=== PATIENT | female | born 2000 | race Caucasian/White ===

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

== ENCOUNTER 2020-08-22 09:35 | Emergency (ER) | payer OTHER ==
[~2020-08-22] VITALS: Ht 162.6 cm; Wt 58.0 kg
[~2020-08-22 09:35] MED LIST changes: +IBUP800T19 PO
[2020-08-22 09:54] VITALS: BP 100/73
[2020-08-22] MEDS ORDERED: IV NORMAL SALINE 1,000ML 1,000 ML IV ONE (10:00)
[2020-08-22] MEDS ORDERED: ONDANSETRON PF 4 MG/2 ML VIAL. IVP ONE (10:00)
--- NOTE | 2020-08-22 10:09 | PHYS DOC ---
Past History Past Medical History: No Pertinent History Past Surgical History: No Surgical History Alcohol Use: None General Adult EDM: Chief Complaint: NAUSEA/VOMITING/DIARRHEA HPI: HPI: 20-year-old female that is 15 weeks presents with nausea and vomiting. She started vomiting around 3 AM. She is unable to keep down any solids or liquids. She has had several episodes and she is concerned about dehydration. She has not had diarrhea. She has been constipated. She has not had a bowel movement in 4 days. This is unusual for her as she usually does every day. She has only tried a children's suppository so far. Patient denies any vaginal bleeding or abdominal pain. She denies fever or chills. She has no other comp laints at this time. Review of Systems: Review of Systems: Constitutional: Denies fever or chills Eyes: Denies change in visual acuity HENT: Denies nasal congestion or sore throat Respiratory: Denies cough or shortness of breath Cardiovascular: Denies chest pain or edema GI: nausea, vomiting. Denies abdominal pain, bloody stools or diarrhea : Denies dysuria Musculoskeletal: Denies back pain or joint pain Integument: Denies rash Neurologic: Denies headache, focal weakness or sensory changes Endocrine: Denies polyuria or polydipsia Lymphatic: Denies swollen glands Psychiatric: Denies depression or anxiety Current Medications: Current Meds: Current Medications Medications (Trade) Dose Ordered Sig/Sav Start Time Stop Time Status Last Admin Dose Admin Ondansetron HCl (Zofran) 4 mg 1X ONCE 08/22/20 10:00 08/22/20 10:01 DC Sodium Chloride 1,000 ml @ 1,000 mls/hr 1X ONCE 08/22/20 10:00 08/22/20 10:59 Allergies: Allergies: Allergies Coded Allergies Type Severity Reaction Last Updated Verified No Known Drug Allergies 08/22/20 No Physical Exam: PE: Constitutional: Well developed, well nourished, no acute distress, non-toxic appearance. [] HENT: Normocephalic, atraumatic, bilateral external ears normal, oropharynx moist, no oral exudates, nose normal. [] Eyes: PERRLA, EOMI, conjunctiva normal, no discharge. [] Neck: Normal range of motion, no tenderness, supple, no stridor. [] Cardiovascular:Heart rate regular rhythm, no murmur [] Lungs & Thorax: Bilateral breath sounds clear to auscultation [] Abdomen: Bowel sounds normal, soft, gravid uterus, no tenderness, no masses, no pulsatile masses. [] Skin: Warm, dry, no erythema, no rash. [] Back: No tenderness, no CVA tenderness. [] Extremities: No tenderness, no cyanosis, no clubbing, ROM intact, no edema. [] Neurologic: Alert and oriented X 3, normal motor function, normal sensory function, no focal deficits noted. [] Psychologic: Affect normal, judgement normal, mood normal. [] Current Patient Data: Vital Signs: Vital Signs Date Time Temp Pulse Resp B/P (MAP) Pulse Ox O2 Delivery O2 Flow Rate FiO2 08/22/20 09:54 98.1 73 18 100/73 (82) 100 EKG: EKG: [] Radiology/Procedures: Radiology/Procedures: [] Heart Score: Risk Factors: Risk Factors: DM, Current or recent (<one month) smoker, HTN, HLP, family history of CAD, obesity. Risk Scores: Score 0 - 3: 2.5% MACE over next 6 weeks - Discharge Home Score 4 - 6: 20.3% MACE over next 6 weeks - Admit for Clinical Observation Score 7 - 10: 72.7% MACE over next 6 weeks - Early Invasive Strategies Course & Med Decision Making: Course & Med Decision Making Pertinent Labs and Imaging studies reviewed. (See chart for details) The patient's urinalysis is significant for bacterial vaginosis with clue cells and UTI. I will treat her with Keflex for 5 days and Flagyl for 7 days. I will also give her Zofran ODT for home. She is stable for discharge at this time. [] Dragon Disclaimer: Dragon Disclaimer: This electronic medical record was generated, in whole or in part, using a voice recognition dictation system. Departure Departure: Impression: Primary Impression: Qualified Codes: Z3A.15 - 15 weeks gestation of Additional Impressions: Bacterial vaginosis in UTI (urinary tract infection) in in second trimester Disposition: 01 DC HOME SELF CARE/HOMELESS Condition: STABLE Referrals: PCP,NO (PCP) Patient Instructions: Bacterial Vaginosis, [id number], - Urinary Tract Infection Scripts Metronidazole (FLAGYL) 500 Mg Tablet 1 TAB PO BID for bacterial vaginosis, #14 TAB Prov: GÓMEZ PINON DO 08/22/20 Cephalexin (KEFLEX) 500 Mg Capsule 1 CAP PO TID for UTI for 5 Days, #15 CAP 0 Refills Prov: GÓMEZ PINON DO 08/22/20 Ondansetron (ONDANSETRON ODT) 4 Mg Tab.rapdis 1 TAB PO PRN Q6-8HRS PRN for VOMITING, #16 TAB Prov: GÓMEZ PINON DO 08/22/20 GÓMEZ PINON DO Aug 22, 2020 10:09
[2020-08-22 10:21] LABS: BASO % 0 % (0-3); EOS # 0.1 x10^3/uL (0.0-0.7); EOS % 1 % (0-3); HEMOGLOBIN 12.5 g/dL (12.0-15.5); LYMPH # 1.4 x10^3/uL (1.0-4.8); LYMPH % 16 % (24-48); MEAN CORPUSCULAR HEMOGLOBIN 34 pg (25-35); MEAN CORPUSCULAR HGB CONC 34 g/dL (31-37); MEAN CORPUSCULAR VOLUME 100 fL (79-100); MONO # 0.5 x10^3/uL (0.0-1.1); MONO % 6 % (0-9); NEUT # 6.6 x10^3uL (1.8-7.7); NEUT % 78 % (31-73); PLATELET COUNT 254 x10^3/uL (140-400); RED BLOOD COUNT 3.72 x10^6/uL (3.50-5.40); RED CELL DISTRIBUTION WIDTH 12.4 % (11.5-14.5); WHITE BLOOD COUNT 8.6 x10^3/uL (4.0-11.0)
[2020-08-22 10:29] LABS: BILIRUBIN,URINE NEG (NEG); CLARITY,URINE TURBID; COLOR,URINE YELLOW; GLUCOSE,URINE NEG (NEG)
[2020-08-22 10:30] LABS: NITRITE,URINE POS (NEG); UROBILINOGEN,URINE 0.2 mg/dL (0.2 mg/dL)
[2020-08-22 10:31] LABS: BACTERIA,URINE MANY /HPF (0-FEW); SQUAMOUS EPITHELIAL CELL,UR MANY /LPF; WBC,URINE >40 /HPF (0-4)
[2020-08-22 10:32] LABS: CALCIUM 9.3 mg/dL (8.5-10.1); CREATININE 0.6 mg/dL (0.6-1.0); GFR 127.5; POTASSIUM 3.7 mmol/L (3.5-5.1)
[2020-08-22 10:37] LABS: ALBUMIN 3.7 g/dL (3.4-5.0); TOTAL BILIRUBIN 0.1 mg/dL (0.2-1.0); TOTAL PROTEIN 7.3 g/dL (6.4-8.2)
[2020-08-22] MEDS ORDERED: METR500T PO (10:54)
[2020-08-22] MEDS ORDERED: CEPH-264 PO (10:54)
[2020-08-22] MEDS ORDERED: ONDA4TAB12 PO (10:54)
== END 2020-08-22 11:12 | disposition home or self-care (01) ==
LOC: MERGE 09:35 → ER 09:35
DX: O23.42 Unspecified infection of urinary tract in pregnancy, second trimester (principal); O23.592 Infection of other part of genital tract in pregnancy, second trimester; K59.00 Constipation, unspecified; Z3A.15 15 weeks gestation of pregnancy
CPT/HCPCS: 36415; 80053; 81001; 85025; 87086; 96361; 96374; 99283; J2405; J7030

== ENCOUNTER 2020-09-03 07:31 | Emergency (ER) | payer OTHER ==
[~2020-09-03] VITALS: Ht 162.6 cm; Wt 59.0 kg
[~2020-09-03 07:31] MED LIST changes: +CEPH-264 PO; +METR500T PO; +ONDA4TAB12 PO
[2020-09-03 07:41] VITALS: BP 120/85
[2020-09-03] MEDS ORDERED: IV NORMAL SALINE 1,000ML 1,000 ML IV ONE (08:00)
[2020-09-03] MEDS ORDERED: ONDANSETRON PF 4 MG/2 ML VIAL. IVP ONE ×2 (08:00→08:30)
--- NOTE | 2020-09-03 08:06 | PHYS DOC ---
Past History Past Medical History: No Pertinent History Past Surgical History: No Surgical History Smoking: Non-smoker Alcohol Use: None Drug Use: Marijuana General Adult EDM: Chief Complaint: VOMITING IN HPI: HPI: Patient is a 20-year-old female coming in for nausea and vomiting since yesterday. Is out of her Zofran and is currently between OBGYN. Nonbloody nonbilious, denies any diarrhea or constipation. No focal abdominal pain. No changes or decrease in urination. Denies any vaginal bleeding or discharge. History of hyperemesis. Review of Systems: Review of Systems: Constitutional: Denies fever or chills Eyes: Denies change in visual acuity HENT: Denies nasal congestion or sore throat Respiratory: Denies cough or shortness of breath Cardiovascular: Denies chest pain or edema GI: Denies abdominal pain, has nonbloody nonbilious vomiting, denies diarrhea : Denies dysuria Musculoskeletal: Denies back pain or joint pain Integument: Denies rash Neurologic: Denies headache, focal weakness or sensory changes Endocrine: Denies polyuria or polydipsia Lymphatic: Denies swollen glands Psychiatric: Denies depression or anxiety Current Medications: Current Meds: Current Medications Medications (Trade) Dose Ordered Sig/Sav Start Time Stop Time Status Last Admin Dose Admin Sodium Chloride 1,000 ml @ 1,000 mls/hr 1X ONCE 09/03/20 08:00 09/03/20 08:59 UNV Allergies: Allergies: Allergies Coded Allergies Type Severity Reaction Last Updated Verified I S O L A T I O N *CONTACT* Allergy Unknown 08/26/20 Yes NKMA Allergy Unknown 08/26/20 Yes Physical Exam: PE: Constitutional: Well developed, well nourished, no acute distress, non-toxic appearance. [] HENT: Normocephalic, atraumatic, bilateral external ears normal, oropharynx moist, no oral exudates, nose normal. [] Eyes: PERRLA, EOMI, conjunctiva normal, no discharge. [] Neck: Normal range of motion, no tenderness, supple, no stridor. [] Cardiovascular:Heart rate regular rhythm, no murmur [] Lungs & Thorax: Bilateral breath sounds clear to auscultation [] Abdomen: Bowel sounds normal, soft, no tenderness, no masses, no pulsatile masses. [] Skin: Warm, dry, no erythema, no rash. [] Back: No tenderness, no CVA tenderness. [] Extremities: No tenderness, no cyanosis, no clubbing, ROM intact, no edema. [] Neurologic: Alert and oriented X 3, normal motor function, normal sensory function, no focal deficits noted. [] Psychologic: Affect normal, judgement normal, mood normal. [] Current Patient Data: Vital Signs: Vital Signs Date Time Temp Pulse Resp B/P (MAP) Pulse Ox O2 Delivery O2 Flow Rate FiO2 09/03/20 07:41 97.9 92 16 120/85 (97) 98 Room Air EKG: EKG: [] Radiology/Procedures: Radiology/Procedures: [] Heart Score: Risk Factors: Risk Factors: DM, Current or recent (<one month) smoker, HTN, HLP, family history of CAD, obesity. Risk Scores: Score 0 - 3: 2.5% MACE over next 6 weeks - Discharge Home Score 4 - 6: 20.3% MACE over next 6 weeks - Admit for Clinical Observation Score 7 - 10: 72.7% MACE over next 6 weeks - Early Invasive Strategies Course & Med Decision Making: Course & Med Decision Making Abdomen unremarkable tolerating p.o., [] Dragon Disclaimer: Dragon Disclaimer: This electronic medical record was generated, in whole or in part, using a voice recognition dictation system. Departure Departure: Impression: Primary Impression: Vomiting during Disposition: 01 DC HOME SELF CARE/HOMELESS Condition: STABLE Referrals: PCP,NO (PCP) Patient Instructions: Nausea and Vomiting Scripts Ondansetron Hcl (ZOFRAN) 4 Mg Tablet 1 TAB PO PRN Q6HRS PRN for NAUSEA, #12 TAB Prov: RIO CHARLTON MD 09/03/20 Ondansetron (ONDANSETRON ODT) 4 Mg Tab.rapdis 1 TAB PO PRN Q6-8HRS PRN for VOMITING, #16 TAB Prov: RIO CHARLTON MD 09/03/20 RIO CHARLTON MD Sep 03, 2020 08:06
[2020-09-03 08:30] LABS: BASO % 0 % (0-3); EOS # 0.1 x10^3/uL (0.0-0.7); EOS % 1 % (0-3); HEMOGLOBIN 12.6 g/dL (12.0-15.5); LYMPH # 1.9 x10^3/uL (1.0-4.8); LYMPH % 17 % (24-48); MEAN CORPUSCULAR HEMOGLOBIN 34 pg (25-35); MEAN CORPUSCULAR HGB CONC 34 g/dL (31-37); MEAN CORPUSCULAR VOLUME 100 fL (79-100); MONO # 0.5 x10^3/uL (0.0-1.1); MONO % 5 % (0-9); NEUT # 8.5 x10^3uL (1.8-7.7); NEUT % 77 % (31-73); PLATELET COUNT 304 x10^3/uL (140-400); RED CELL DISTRIBUTION WIDTH 12.3 % (11.5-14.5)
[2020-09-03] MEDS ORDERED: TRIA15OI TP (08:32)
[2020-09-03 08:39] LABS: CREATININE 0.6 mg/dL (0.6-1.0); GFR 127.5; POTASSIUM 3.3 mmol/L (3.5-5.1)
[2020-09-03 08:45] LABS: ALBUMIN 3.5 g/dL (3.4-5.0); ALBUMIN/GLOBULIN RATIO 0.9 (1.0-1.7); TOTAL BILIRUBIN 0.1 mg/dL (0.2-1.0); TOTAL PROTEIN 7.2 g/dL (6.4-8.2)
[2020-09-03 10:29] LABS: BILIRUBIN,URINE NEG (NEG); CLARITY,URINE CLOUDY; COLOR,URINE AMBER; GLUCOSE,URINE NEG (NEG); NITRITE,URINE NEG (NEG); UROBILINOGEN,URINE 0.2 mg/dL (0.2 mg/dL)
[2020-09-03 10:30] LABS: AMORPHOUS SEDIMENT,UR PRESENT /HPF; BACTERIA,URINE FEW /HPF (0-FEW); HYALINE CASTS, URINE FEW /HPF; SQUAMOUS EPITHELIAL CELL,UR MANY /LPF
[2020-09-03] MEDS ORDERED: ONDA4TAB12 PO (10:39)
[2020-09-03] MEDS ORDERED: ONDA4TAB7 PO (10:39)
== END 2020-09-03 10:43 | disposition home or self-care (01) ==
LOC: ER 07:31
DX: O21.9 Vomiting of pregnancy, unspecified (principal); Z3A.17 17 weeks gestation of pregnancy; Z88.8 Allergy status to other drugs, medicaments and biological substances
CPT/HCPCS: 36415; 80053; 81001; 83690; 85025; 87086; 96361; 96374; 99284; J2405; J7030

== ENCOUNTER 2020-10-11 09:11 | Emergency (ER) | payer OTHER ==
[~2020-10-11] VITALS: Ht 165.1 cm; Wt 59.0 kg
[~2020-10-11 09:11] MED LIST changes: +ONDA4TAB7 PO; +TRIA15OI TP
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
[2020-10-11 10:09] LABS: BASO % 0 % (0-3); EOS % 0 % (0-3); HEMATOCRIT 31.9 % (36.0-47.0); HEMOGLOBIN 10.5 g/dL (12.0-15.5); LYMPH # 1.5 x10^3/uL (1.0-4.8); LYMPH % 15 % (24-48); MEAN CORPUSCULAR HEMOGLOBIN 33 pg (25-35); MEAN CORPUSCULAR HGB CONC 33 g/dL (31-37); MEAN CORPUSCULAR VOLUME 100 fL (79-100); MONO # 0.6 x10^3/uL (0.0-1.1); MONO % 6 % (0-9); NEUT # 8.2 x10^3uL (1.8-7.7); NEUT % 79 % (31-73); PLATELET COUNT 370 x10^3/uL (140-400); RED BLOOD COUNT 3.19 x10^6/uL (3.50-5.40); RED CELL DISTRIBUTION WIDTH 12.3 % (11.5-14.5); WHITE BLOOD COUNT 10.4 x10^3/uL (4.0-11.0)
[2020-10-11 10:14] LABS: CALCIUM 8.6 mg/dL (8.5-10.1); CREATININE 0.7 mg/dL (0.6-1.0); GFR 106.7; POTASSIUM 3.3 mmol/L (3.5-5.1)
[2020-10-11 10:20] LABS: ALBUMIN 2.8 g/dL (3.4-5.0); ALBUMIN/GLOBULIN RATIO 0.7 (1.0-1.7); TOTAL BILIRUBIN 0.2 mg/dL (0.2-1.0); TOTAL PROTEIN 6.8 g/dL (6.4-8.2)
[2020-10-11 10:46] LABS: BILIRUBIN,URINE NEG (NEG); CLARITY,URINE CLOUDY; COLOR,URINE YELLOW; GLUCOSE,URINE NEG (NEG); NITRITE,URINE POS (NEG)
[2020-10-11 10:47] LABS: BACTERIA,URINE MANY /HPF (0-FEW); SQUAMOUS EPITHELIAL CELL,UR FEW /LPF; WBC,URINE >40 /HPF (0-4)
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
[2020-10-11 12:21] LABS: BASO % 0 % (0-3); EOS % 0 % (0-3); HEMOGLOBIN 10.2 g/dL (12.0-15.5); LYMPH # 1.8 x10^3/uL (1.0-4.8); LYMPH % 14 % (24-48); MEAN CORPUSCULAR HEMOGLOBIN 33 pg (25-35); MEAN CORPUSCULAR HGB CONC 33 g/dL (31-37); MEAN CORPUSCULAR VOLUME 99 fL (79-100); MONO # 0.7 x10^3/uL (0.0-1.1); MONO % 5 % (0-9); NEUT # 10.6 x10^3uL (1.8-7.7); NEUT % 81 % (31-73); PLATELET COUNT 355 x10^3/uL (140-400); RED BLOOD COUNT 3.14 x10^6/uL (3.50-5.40); RED CELL DISTRIBUTION WIDTH 12.3 % (11.5-14.5); WHITE BLOOD COUNT 13.1 x10^3/uL (4.0-11.0)
[2020-10-11 13:19] LABS: FETAL BLEED VOL < 15 mL; KLEIHAUER RESULT 0.0018 RATIO
[2020-10-11 13:46] VITALS: BP 114/65
[2020-10-11] MEDS ORDERED: NITR100C62 PO (13:49)
[2020-10-11 14:06] VITALS: BP 102/64
== END 2020-10-11 14:10 | disposition home or self-care (01) ==
LOC: ER 09:11
DX: O26.892 Other specified pregnancy related conditions, second trimester (principal); S80.02XA Contusion of left knee, initial encounter; R10.30 Lower abdominal pain, unspecified; R55 Syncope and collapse; H93.19 Tinnitus, unspecified ear; F12.90 Cannabis use, unspecified, uncomplicated; Z90.89 Acquired absence of other organs; Z88.8 Allergy status to other drugs, medicaments and biological substances; V98.8XXA Other specified transport accidents, initial encounter; Y93.89 Activity, other specified; Y92.413 State road as the place of occurrence of the external cause; Y99.8 Other external cause status; Z3A.21 21 weeks gestation of pregnancy
CPT/HCPCS: 36415; 76815; 80053; 81001; 83690; 85025; 85460; 86850; 86900; 86901; 87086; 99285; J2791

== ENCOUNTER → 2020-11-08 | Outpatient (CLI) | payer OTHER ==
[2020-10-11 14:06] VITALS: BP 102/64
[~2020-11-08] MED LIST changes: +CEPH500C PO
--- NOTE | 2020-11-08 11:09 | RAD ---
EXAM: Obstetrics sonogram. HISTORY: Size and dates discrepancy. TECHNIQUE: Sonographic imaging of a gravid uterus was performed. COMPARISON: 10/11/2020. FINDINGS: There is a single intrauterine fetus in cephalic presentation with a normal heart rate of 1 62 bpm. The cervix is closed and measures 4.0 cm in length. There is body motion. There is a fo ur-chamber heart. There is a three-vessel umbilical cord. The stomach, kidneys, bladder, spine, brain, facial profile and extremities are unremarkable. The maternal adnexal regions are unrem arkable. There is a grade 0 posterior placenta without evidence of placenta previa. The amniotic flui d index is normal. The biparietal diameter is 6.5 cm, corresponding with 26 weeks and 2 days. The head circumference is 24.2 cm, corresponding 26 weeks and 2 days. The abdominal circumference is 21.3 cm, corresponding wit h 25 weeks and 5 days. The femoral length is 5.0 cm, corresponding with 26 weeks and 6 days. The ariel mated gestational age patient combined ultrasound measurements is 26 weeks and 2 days and the estimat ed weight is 910 g. This corresponds with the 39th percentile for a gestational age of 26 weeks and 6 days based on LMP. IMPRESSION: 1. Single intrauterine fetus in cephalic presentation with a normal heart rate and gestational age ba sed on ultrasound measurements of 26 weeks and 2 days. The estimated weight is at the 39th perc entile for a gestational age of 26 weeks and 6 days based on LMP. 2. Unremarkable anatomy survey. Electronically signed by: America Benavidez MD (11/08/2020 11:07 AM) [id number]
== END ==
LOC: US 09:12
PROVIDERS: ATTEND Obstetrics & Gynecology
DX: O26.842 Uterine size-date discrepancy, second trimester (principal); Z3A.26 26 weeks gestation of pregnancy
CPT/HCPCS: 76805

== ENCOUNTER 2020-11-09 08:49 | Emergency (ER) | payer OTHER ==
[~2020-11-09] VITALS: Ht 165.1 cm; Wt 63.3 kg
[~2020-11-09 08:49] MED LIST changes: -CEPH500C PO
--- NOTE | 2020-11-09 09:06 | PHYS DOC ---
Past History Past Medical History: No Pertinent History Past Surgical History: Tonsillectomy Smoking: Non-smoker Alcohol Use: None Drug Use: Marijuana General Adult EDM: Chief Complaint: FLANK PAIN HPI: HPI: Patient is a 20-year-old female who is about 27 weeks , presented to ER for evaluation of right flank pain off and on for 3 days with strong urine odor and frequent urination. Patient denies any chest pain, no nausea or vomiting, no pelvic pain, no vaginal bleeding or discharge. Patient had a routine regular OB ultrasound done yesterday. Her [facility] doctor IS Dr. Lacy Hussein. Patient denies any chest pain or any trouble breathing, no cough. Patient denies any fever. Review of Systems: Review of Systems: Constitutional: Denies fever or chills Eyes: Denies change in visual acuity HENT: Denies nasal congestion or sore throat Respiratory: Denies cough or shortness of breath Cardiovascular: Denies chest pain or edema GI: Denies abdominal pain, nausea, vomiting, bloody stools or diarrhea : Right flank pain with frequency of urination Musculoskeletal: Denies back pain or joint pain Integument: Denies rash Neurologic: Denies headache, focal weakness or sensory changes Endocrine: Denies polyuria or polydipsia Lymphatic: Denies swollen glands Psychiatric: Denies depression or anxiety Allergies: Allergies: Allergies Coded Allergies Type Severity Reaction Last Updated Verified I S O L A T I O N *CONTACT* Allergy Unknown 08/26/20 Yes NKMA Allergy Unknown 08/26/20 Yes Physical Exam: PE: Constitutional: Well developed, well nourished, no acute distress, non-toxic appearance. [] HENT: Normocephalic, atraumatic, bilateral external ears normal, oropharynx moist, no oral exudates, nose normal. [] Eyes: PERRLA, EOMI, conjunctiva normal, no discharge. [] Neck: Normal range of motion, no tenderness, supple, no stridor. [] Cardiovascular:Heart rate regular rhythm, no murmur [] Lungs & Thorax: Bilateral breath sounds clear to auscultation [] Abdomen: Bowel sounds normal, soft, no tenderness, no masses, no pulsatile masses. [] Skin: Warm, dry, no erythema, no rash. [] Back: No tenderness, no CVA tenderness. [] Extremities: No tenderness, no cyanosis, no clubbing, ROM intact, no edema. [] Neurologic: Alert and oriented X 3, normal motor function, normal sensory function, no focal deficits noted. [] Psychologic: Affect normal, judgement normal, mood normal. [] EKG: EKG: [] Radiology/Procedures: Radiology/Procedures: [address] [address] IMAGING REPORT Signed PATIENT: MICHELA LARAOUNT: [id number] : 2000 LOCATION: US AGE: 20 SEX: F EXAM STATUS: REG CLI ORD. PHYSICIAN: LACY HUSSEIN JR, MD REASON: SIZE DATES DISCREPANCY PROCEDURE: PREG MORE THAN OR EQ TO 14 WKS EXAM: Obstetrics sonogram. HISTORY: Size and dates discrepancy. TECHNIQUE: Sonographic imaging of a gravid uterus was performed. COMPARISON: 10/11/2020. FINDINGS: There is a single intrauterine fetus in cephalic presentation with a normal heart rate of 162 bpm. The cervix is closed and measures 4.0 cm in length. There is body motion. There is a four-chamber heart. There is a three-vessel umbilical cord. The stomach, kidneys, bladder, spine, brain, facial profile and extremities are unremarkable. The maternal adnexal regions are unremarkable. There is a grade 0 posterior placenta without evidence of placenta previa. The amniotic fluid index is normal. The biparietal diameter is 6.5 cm, corresponding with 26 weeks and 2 days. The head circumference is 24.2 cm, corresponding 26 weeks and 2 days. The abdominal circumference is 21.3 cm, corresponding with 25 weeks and 5 days. The femoral length is 5.0 cm, corresponding with 26 weeks and 6 days. The estimated gestational age patient combined ultrasound measurements is 26 weeks and 2 days and the estimated weight is 910 g. This corresponds with the 39th percentile for a gestational age of 26 weeks and 6 days based on LMP. IMPRESSION: 1. Single intrauterine fetus in cephalic presentation with a normal heart rate and gestational age based on ultrasound measurements of 26 weeks and 2 days. The estimated weight is at the 39th percentile for a gestational age of 26 weeks and 6 days based on LMP. 2. Unremarkable anatomy survey. Electronically signed by: America Thompson MD (11/08/2020 11:07 AM) [id number] DICTATED AND SIGNED BY: AMERICA THOMPSON MD DATE: 11/08/20 5902 CC: LACY HUSSEIN JR, MD; [facility] COX ~MTH0 0 Heart Score: Risk Factors: Risk Factors: DM, Current or recent (<one month) smoker, HTN, HLP, family history of CAD, obesity. Risk Scores: Score 0 - 3: 2.5% MACE over next 6 weeks - Discharge Home Score 4 - 6: 20.3% MACE over next 6 weeks - Admit for Clinical Observation Score 7 - 10: 72.7% MACE over next 6 weeks - Early Invasive Strategies Course & Med Decision Making: Course & Med Decision Making Pertinent Labs and Imaging studies reviewed. (See chart for details) Patient is a 20-year-old female who is about 27 weeks presented to ER due to right flank pain with frequency. Patient was found to have UTI, patient was given IV fluid and IV Rocephin in the ER. Patient will be discharged home, she will need to follow-up with her [facility] doctor for reevaluation. Patient is amenable to plan of care. Dragon Disclaimer: Dragon Disclaimer: This electronic medical record was generated, in whole or in part, using a voice recognition dictation system. Departure Departure: Impression: Primary Impression: UTI (urinary tract infection) Disposition: 01 DC HOME SELF CARE/HOMELESS Condition: IMPROVED Referrals: MARC COX (PCP) Please call your [facility] [facility] doctor for follow up this week. Patient Instructions: Urinary Tract Infection Additional Instructions: Thank you for visiting our Emergency Department. We appreciate you trusting us with your care. If any additional problems come up don't hesitate to return to visit us. Please follow up with your primary care provider so they can plan additional care if needed and know about the problem that you had. If symptoms worsen come back to the Emergency Department. Any concerning symptoms that start such as chest pain, shortness of air, weakness or numbness on one side of the body, running high fevers or any other concerning symptoms return to the ER. Scripts Cephalexin (CEPHALEXIN) 500 Mg Capsule 1 CAP PO QID for UTI for 7 Days, #28 CAP Prov: ROGELIO CHEN DO 11/09/20 ROGELIO CHEN DO Nov 09, 2020 09:06
[2020-11-09] MEDS: IV NORMAL SALINE 1,000ML 1,000 ML IV ONE (09:22)
[2020-11-09 09:31] LABS: BASO % 0 % (0-3); EOS % 0 % (0-3); HEMATOCRIT 30.5 % (36.0-47.0); HEMOGLOBIN 10.2 g/dL (12.0-15.5); LYMPH # 1.4 x10^3/uL (1.0-4.8); LYMPH % 12 % (24-48); MEAN CORPUSCULAR HEMOGLOBIN 33 pg (25-35); MEAN CORPUSCULAR HGB CONC 33 g/dL (31-37); MEAN CORPUSCULAR VOLUME 98 fL (79-100); MONO # 0.8 x10^3/uL (0.0-1.1); MONO % 7 % (0-9); NEUT # 9.4 x10^3uL (1.8-7.7); NEUT % 81 % (31-73); PLATELET COUNT 410 x10^3/uL (140-400); RED BLOOD COUNT 3.13 x10^6/uL (3.50-5.40); RED CELL DISTRIBUTION WIDTH 12.1 % (11.5-14.5); WHITE BLOOD COUNT 11.6 x10^3/uL (4.0-11.0)
[2020-11-09 09:43] LABS: CALCIUM 8.3 mg/dL (8.5-10.1); CREATININE 0.7 mg/dL (0.6-1.0); GFR 106.7; POTASSIUM 3.4 mmol/L (3.5-5.1)
[2020-11-09 09:46] LABS: BILIRUBIN,URINE NEG (NEG); CLARITY,URINE CLOUDY; COLOR,URINE YELLOW; GLUCOSE,URINE NEG (NEG); NITRITE,URINE NEG (NEG)
[2020-11-09 09:47] LABS: BACTERIA,URINE MANY /HPF (0-FEW); SQUAMOUS EPITHELIAL CELL,UR MOD /LPF; WBC,URINE 20-40 /HPF (0-4)
[2020-11-09 09:49] LABS: ALBUMIN 2.6 g/dL (3.4-5.0); ALBUMIN/GLOBULIN RATIO 0.6 (1.0-1.7); TOTAL BILIRUBIN 0.3 mg/dL (0.2-1.0)
[2020-11-09 09:51] LABS: MAGNESIUM 1.8 mg/dL (1.8-2.4)
[2020-11-09] MEDS ORDERED: IV NORMAL SALINE 50ML 50 ML ONE (09:59)
[2020-11-09] MEDS ORDERED: cefTRIAXone SODIUM 1 GM VIAL ONE (10:00)
[2020-11-09] MEDS ORDERED: CEPH500C PO (10:12)
[2020-11-09 11:12] VITALS: BP 122/65
== END 2020-11-09 11:23 | disposition home or self-care (01) ==
LOC: ER 08:49
DX: O23.42 Unspecified infection of urinary tract in pregnancy, second trimester (principal); Z3A.26 26 weeks gestation of pregnancy; Z88.8 Allergy status to other drugs, medicaments and biological substances
CPT/HCPCS: 36415; 80053; 81001; 83735; 85025; 87086; 96361; 96365; 99284; J0696; J7030

== ENCOUNTER 2020-11-23 09:48 | Emergency (ER) | payer OTHER ==
[~2020-11-23] VITALS: Ht 165.1 cm; Wt 62.7 kg
[~2020-11-23 09:48] MED LIST changes: +CEPH500C PO
[2020-11-23] MEDS ORDERED: DICYCLOMINE HCL 20 MG TABLET PO ONE (11:00)
[2020-11-23 11:05] VITALS: BP 108/61
--- NOTE | 2020-11-23 12:02 | PHYS DOC ---
Past History Past Medical History: UTI Past Surgical History: Tonsillectomy Smoking: Non-smoker Alcohol Use: None Drug Use: Marijuana General Adult EDM: Chief Complaint: ABDOMINAL PAIN IN HPI: HPI: This is a pleasant 20-year-old female primigravida's who presents to the emergency department today with abdominal cramping in . She is about 29 weeks . Her OB is Dr. Patel. It is a cramping intermittent pain of the abdomen that comes and goes. It was worse earlier this morning. She called Dr. Nieves's office who told her to come to the emergency department. She denies fevers cough nausea vomiting. Her pain is currently improving. The pain is nonradiating and without alleviating factors Review of systems negative for chest pain vomiting fevers chills. All other review of systems negative. ED course: 20-year-old primigravida's female presenting with abdominal cramping in . On arrival the patient is afebrile with a normal heart rate. Vital signs within normal limits. Her abdomen is soft and nontender. Negative Otilio's point. Negative Kuhn sign. Given the patient's status we will send her to labor and delivery for evaluation. I spoke to Dr. Hernandez who accepts the patient for transfer. The patient was then transferred in stable condition. We were able to get heart tones on the patient at about 150 bpm. Current Medications: Current Meds: Current Medications Medications (Trade) Dose Ordered Sig/Sav Start Time Stop Time Status Last Admin Dose Admin Dicyclomine HCl (Bentyl) 20 mg 1X ONCE 11/23/20 11:00 11/23/20 11:13 DC Allergies: Allergies: Allergies Coded Allergies Type Severity Reaction Last Updated Verified I S O L A T I O N *CONTACT* Allergy Unknown 11/09/20 Yes NKMA Allergy Unknown 11/09/20 Yes Physical Exam: PE: Constitutional: Well developed, well nourished, no acute distress, non-toxic appearance. [] HENT: Normocephalic, atraumatic, bilateral external ears normal, oropharynx moist, no oral exudates, nose normal. [] Eyes: PERRLA, EOMI, conjunctiva normal, no discharge. [] Neck: Normal range of motion, no tenderness, supple, no stridor. [] Cardiovascular:Heart rate regular rhythm, no murmur [] Lungs & Thorax: Bilateral breath sounds clear to auscultation [] Abdomen: Bowel sounds normal, soft, no tenderness, no masses, no pulsatile masses. No rebound tenderness or guarding. Negative McBurney's point. Neg ative Kuhn sign. Skin: Warm, dry, no erythema, no rash. [] Back: No tenderness, no CVA tenderness. [] Extremities: No tenderness, no cyanosis, no clubbing, ROM intact, no edema. [] Neurologic: Alert and oriented X 3, normal motor function, normal sensory function, no focal deficits noted. [] Psychologic: Affect normal, judgement normal, mood normal. [] EKG: EKG: [] Radiology/Procedures: Radiology/Procedures: [] Heart Score: Risk Factors: Risk Factors: DM, Current or recent (<one month) smoker, HTN, HLP, family history of CAD, obesity. Risk Scores: Score 0 - 3: 2.5% MACE over next 6 weeks - Discharge Home Score 4 - 6: 20.3% MACE over next 6 weeks - Admit for Clinical Observation Score 7 - 10: 72.7% MACE over next 6 weeks - Early Invasive Strategies Course & Med Decision Making: Course & Med Decision Making Pertinent Labs and Imaging studies reviewed. (See chart for details) [] Dragon Disclaimer: Delaney Disclaimer: This electronic medical record was generated, in whole or in part, using a voice recognition dictation system. Departure Departure: Impression: Primary Impression: Abdominal pain affecting Disposition: 05 DC/TRF OTHER TYPE INSTITUTI ([facility] DELIVERY AT [facility]) Condition: STABLE Referrals: MARC COX (PCP) ANDREEA DUMONT MD Nov 23, 2020 12:02
== END 2020-11-23 11:50 | disposition short-term general hospital (02) ==
LOC: ER 09:48
DX: O26.893 Other specified pregnancy related conditions, third trimester (principal); R10.9 Unspecified abdominal pain; O23.43 Unspecified infection of urinary tract in pregnancy, third trimester; Z3A.29 29 weeks gestation of pregnancy; Z88.8 Allergy status to other drugs, medicaments and biological substances
CPT/HCPCS: 99285-25

== ENCOUNTER 2021-04-04 18:47 | Emergency (ER) | payer OTHER ==
[~2021-04-04] VITALS: Ht 170.2 cm; Wt 60.2 kg
[2021-04-04 18:55] VITALS: BP 113/70
[2021-04-04] MEDS ORDERED: HYDROcodone/APAP 5/325MG 1 TAB TABLET PO ONE (19:15)
[2021-04-04] MEDS ORDERED: HYDR-2155 PO (19:32)
--- NOTE | 2021-04-04 19:34 | PHYS DOC ---
Past History Past Medical History: Anxiety, UTI Past Surgical History: Tonsillectomy Smoking: Non-smoker Alcohol Use: Rarely Drug Use: Marijuana Adult General Chief Complaint Chief Complaint: DENTAL PROBLEM HPI HPI Patient is an otherwise healthy 20-year-old female who presents with dental pain. States that she has had dental pain for the last couple of weeks, 7 out of 10, sharp in nature and has seen a dentist. States she has an appointment tomorrow with a dentist to reevaluate, and probably get a root canal and have it fixed but does not have anything at home for pain outside of ibuprofen which only provides minimal relief. States she came into the emergency department to get pain relief until tomorrow. Denies any fevers, pain or trouble swallowing, chest pain, abdominal pain, nausea, vomiting. Review of Systems Review of Systems Review of systems otherwise unremarkable except noted in HPI Current Medications Current Medications Current Medications Medications (Trade) Dose Ordered Sig/Sav Start Time Stop Time Status Last Admin Dose Admin Acetaminophen/ Hydrocodone Bitart (Lortab 5/325) 2 tab 1X ONCE 04/04/21 19:15 04/04/21 19:17 DC Allergies Allergies Allergies Coded Allergies Type Severity Reaction Last Updated Verified I S O L A T I O N *CONTACT* Allergy Unknown 11/09/20 Yes NKMA Allergy Unknown 11/09/20 Yes Physical Exam Physical Exam Constitutional: Well developed, well nourished, no acute distress, non-toxic appearance. [] HENT: Normocephalic, atraumatic, patient has what appears to be a large dental carry on the bottom right second to last molar with no signs of infection Eyes: conjunctiva normal, no discharge. [] Neck: Normal range of motion, no tenderness, supple, no stridor. [] Cardiovascular:Heart rate regular rhythm, no murmur [] Lungs & Thorax: Bilateral breath sounds clear to auscultation [] Neurologic: Alert and oriented X 3, normal motor function, normal sensory function, no focal deficits noted. [] Psychologic: Affect normal, judgement normal, mood normal. [] Current Patient Data Vital Signs Vital Signs Date Time Temp Pulse Resp B/P (MAP) Pulse Ox O2 Delivery O2 Flow Rate FiO2 04/04/21 18:55 97.9 95 20 113/70 (84) 96 Nasal Cannula EKG EKG [] Radiology/Procedures Radiology/Procedures [] Heart Score C/O Chest Pain: N/A Risk Factors: Risk Factors: DM, Current or recent (<one month) smoker, HTN, HLP, family history of CAD, obesity. Risk Scores: Risk Factors: DM, Current or recent (<one month) smoker, HTN, HLP, family history of CAD, obesity. Course & Med Decision Making Course & Med Decision Making Patient is a 20-year-old female who presents with dental pain Vital signs not concerning. Physical exam noted above. Patient given oral pain medication. Politely declined dental block. Discussed other forms of pain management at home including ibuprofen, Tylenol, Benadryl and Orajel. Advised to keep her appointment tomorrow with her dentist. Gave return precautions to the ED. Patient very grateful, verbalized understanding and agreed with plan of discharge. [] Dragon Disclaimer Dragon Disclaimer This electronic medical record was generated, in whole or in part, using a voice recognition dictation system. Departure Departure: Impression: Primary Impression: Pain, dental Disposition: HOME / SELF CARE / HOMELESS Condition: GOOD Referrals: MARC COX (PCP) Patient Instructions: Dental Pain Additional Instructions: Thank you for coming into the emergency department tonight and allowing us to take care of you. Please read the attached information carefully. You are given oral pain medication in the emergency department. Please continue to use [id number] pain medicines as discussed at home. Please only take your prescription pain medicine as needed and as discussed. Please keep your appointment tomorrow with your dentist. Please come back to the emergency department with new or concerning symptoms as discussed. Scripts Hydrocodone Bit/Acetaminophen (HYDROCODONE-APAP 5-325 ) 1 Each Tablet 1 TAB PO TID PRN for dental pain for 1 Day, #3 TAB 0 Refills Prov: SHAQ MARIE MD 04/04/21 SHAQ MARIE MD Apr 04, 2021 19:34
== END 2021-04-04 19:50 | disposition home or self-care (01) ==
LOC: ER 18:47
DX: K08.89 Other specified disorders of teeth and supporting structures (principal); F41.9 Anxiety disorder, unspecified; Z87.440 Personal history of urinary (tract) infections; Z88.8 Allergy status to other drugs, medicaments and biological substances
CPT/HCPCS: 99283

== ENCOUNTER 2021-06-21 10:03 | Emergency (ER) | payer OTHER ==
[~2021-06-21] VITALS: Ht 170.2 cm; Wt 60.2 kg
[~2021-06-21 10:03] MED LIST changes: +HYDR-2155 PO
--- NOTE | 2021-06-21 10:34 | PHYS DOC ---
Past History Past Medical History: Anxiety, UTI (DIANA SANDY APRN) Past Surgical History: No Surgical History (DIANA SANDY APRN) Smoking: Non-smoker Additional Smoking Information: stopped since preg Alcohol Use: None Drug Use: Marijuana Social History Narrative: marijuana prior to finding preg (DIANA SANDY APRN) General Adult EDM: Chief Complaint: VAGINAL BLEEDING HPI: HPI: Patient is a 20-year-old female presents with vaginal bleeding and . Patient states last menstrual period was 05/03. Patient reports positive home test 2 weeks ago. Patient states "this morning woke up and had a light cramping and bright red, light bleeding this morning". Patient has not seen an OB to confirm . Patient is G2, P1. "I just delivered my last baby 4 months ago". "I did have to have a RhoGam shot" denies dysuria, abnormal discharge, odor. Denies recent illness or fever. Denies medical history. (DIANA SANDY APRN) Review of Systems: Review of Systems: Constitutional: Denies fever or chills Eyes: Denies change in visual acuity HENT: Denies nasal congestion or sore throat Respiratory: Denies cough or shortness of breath Cardiovascular: Denies chest pain or edema GI: Reports mild abdominal cramping. Denies nausea/vomiting/diarrhea. /vaginal: Denies dysuria. Reports light, bright red bleeding Musculoskeletal: Denies back pain or joint pain Integument: Denies rash Neurologic: Denies headache, focal weakness or sensory changes Endocrine: Denies polyuria or polydipsia Lymphatic: Denies swollen glands Psychiatric: Denies depression or anxiety (DIANA SANDY APRN) Allergies: Allergies: Allergies Coded Allergies Type Severity Reaction Last Updated Verified I S O L A T I O N *CONTACT* Allergy Unknown 06/21/21 Yes NKMA Allergy Unknown 06/21/21 Yes (DIANA SANDY APRN) Physical Exam: PE: Constitutional: Well developed, well nourished, no acute distress, non-toxic appearance. [] HENT: Normocephalic, atraumatic, bilateral external ears normal, oropharynx moist, no oral exudates, nose normal. [] Eyes: PERRLA, EOMI, conjunctiva normal, no discharge. [] Neck: Normal range of motion, no tenderness, supple, no stridor. [] Cardiovascular:Heart rate regular rhythm, no murmur [] Lungs & Thorax: Bilateral breath sounds clear to auscultation [] Abdomen: Bowel sounds normal, soft, no tenderness, no masses, no pulsatile masses. [] Skin: Warm, dry, no erythema, no rash. [] Back: No tenderness, no CVA tenderness. [] Extremities: No tenderness, no cyanosis, no clubbing, ROM intact, no edema. [] Neurologic: Alert and oriented X 3, normal motor function, normal sensory func tion, no focal deficits noted. [] Psychologic: Affect normal, judgement normal, mood normal. [] (DIANA SANDY APRN) Current Patient Data: Vital Signs: Vital Signs Date Time Temp Pulse Resp B/P (MAP) Pulse Ox O2 Delivery O2 Flow Rate FiO2 06/21/21 10:13 96.6 92 18 117/78 99 Room Air (DIANA SANDY APRN) EKG: EKG: [] (DIANA SANDY APRN) Radiology/Procedures: Radiology/Procedures: []EXAM: Obstetrics sonogram. HISTORY: Vaginal bleeding. TECHNIQUE: Transabdominal and transvaginal sonographic imaging of the pelvis was performed. COMPARISON: None. FINDINGS: The uterus measures 8.4 x 5.7 x 4.7 cm. There is a single intrauterine gestational sac with pole and yolk sac. The crown-rump length is 4 mm, corresponding with a gestational age of 6 weeks and 1 day and due date of 02/13/2022. The heart rate is 117 bpm. The gestational sac is normal in configuration and location. The yolk sac is normal in size. No subchronic hematoma is seen. The left ovary is obscured due to bowel gas. The right ovary is unremarkable. There is a small amount of pelvic free fluid. There are prominent pelvic vessels. IMPRESSION: 1. Single intrauterine fetus with normal heart rate and gestational age based on a crown-rump length measurement of 6 weeks and 1 day. 2. Small amount of nonspecific pelvic free fluid and prominent pelvic vessels, the latter of which may be physiologic or due to a component of pelvic congestion. 3. No findings correlate with reported vaginal bleeding. Electronically signed by: America Benavidez MD (06/21/2021 1:02 PM) [id number] (DIANA SANDY APRN) Heart Score: C/O Chest Pain: No Risk Factors: Risk Factors: DM, Current or recent (<one month) smoker, HTN, HLP, family history of CAD, obesity. Risk Scores: Score 0 - 3: 2.5% MACE over next 6 weeks - Discharge Home Score 4 - 6: 20.3% MACE over next 6 weeks - Admit for Clinical Observation Score 7 - 10: 72.7% MACE over next 6 weeks - Early Invasive Strategies (DIANA SANDY APRN) Course & Med Decision Making: Course & Med Decision Making Pertinent Labs and Imaging studies reviewed. (See chart for details) [] 20-year-old female presents with vaginal bleeding and . Last menstrual period 05/03. Patient had a positive test 2 weeks ago at home. Denies seeing OB to confirm . Patient woke up this morning and had light, bright red bleeding along with mild lower abdominal cramping. G2, P1. All labs unremarkable. Beta hCG 42275. UA positive for leuks. Patient sent home with prescription for Keflex, 3 times daily x5 days. Type and screen shows B negative. RhoGam shot administered. Transvaginal ultrasound shows Single intrauterine fetus with normal heart rate and gestational age based on a crown-rump length measurement of 6 weeks a nd 1 day. Provided a copy for patient to take to OB. Instructed patient to follow back up in 48 hours to have repeat quant hCG levels. Advised patient to call OB to set up follow-up appointment. Patient states she understands discharge instructions Patient's hemodynamically stable upon disposition. (DIANA SANDY APRN) Dragon Disclaimer: Dragon Disclaimer: This electronic medical record was generated, in whole or in part, using a voice recognition dictation system. (DIANA SANDY APRN) Attending Co-Sign The patient was seen and interviewed as well as examined at the bedside. The chart was reviewed. The case was discussed. Agree with the plan of care. (GÓMEZ PINON DO) Departure Departure: Impression: Primary Impression: Vaginal bleeding during Disposition: HOME / SELF CARE / HOMELESS Condition: STABLE Referrals: MARC COX (PCP) Patient Instructions: Vaginal Bleeding During , First Trimester Additional Instructions: You were seen in the emergency room for vaginal bleeding. Your urine was positive for infection. I am sending you home with prescription for Keflex. You will need to take this antibiotic 3 times a day for 5 days. Make sure you take antibiotics in full. You also need to return in 48 hours to have repeat quant hCG levels to make sure they are increasing. Please call your OB to make a follow-up appointment. Return to the emergency room if you have worsening symptoms and concerns such as, increase in bleeding or pain. EMERGENCY DEPARTMENT GENERAL DISCHARGE INSTRUCTIONS Thank you for coming to [facility] (ED) today and trusting us with you care. We trust that you had a positivie experience in our Emergency Department. If you wish to speak to the department management, you may call the director at [phone]. YOUR FOLLOW UP INSTRUCTIONS ARE FOLLOWS: 1. Do you have a private Doctor? If you do not have a private doctor, please ask for a resource list of physicians or clinics that may be able to assist you with follow up care. 2. The Emergency Physician has interpreted your x-rays. The X-Ray specialist will also review them. If there is a change in the findings, you will be notified in 48 hours when at all possible. 3. A lab test or culture has been done, your results will be reviewed and you will be notified if you need a change in treatment. ADDITIONAL INSTRUCTIONS AND INFORMATION: 1. Your care today has been supervised by a physician who is specially trained in emergency care. Many problems require more than one evaluation for a complete diagnosis and treatment. We recommend that you schedule your follow up appointment as recomm ended to ensure complete treatment of you illness or injury. If you are unable to obtain follow up care and continue to have a problem, or if your condition worsens, we recommend that you return to the ED. 2. We are not able to safely determine your condition over the phone nor are we able to give sound medical advice over the phone. For these safety reasons, if you call for medical advice we will ask you to come to the ED for further evaluation. 3. If you have any questions regarding these discharge instructions please call the ED at [phone]. SAFETY INFORMATION: In the interest of safety, wellness, and injury prevention; we encourage you to wear your sealbelt, if you smoke; quite smoking, and we encourage family to use a protective helmet for bicycling and other sporting events that present an increased risk for head injury. IF YOUR SYMPTOMS WORSEN OR NEW SYMPTOMS DEVELOP, OR YOU HAVE CONCERNS ABOUT YOUR CONDITION; OR IF YOUR CONDITION WORSENS WHILE YOU ARE WAITING FOR YOUR FOLLOW UP APPOINTMENT; EITHER CONTACT YOUR PRIMARY CARE DOCTOR, THE PHYSICIAN WHOSE NAME AND NUMBER YOU WERE GIVEN, OR RETURN TO THE ED IMMEDIATELY. Scripts Cephalexin (CEPHALEXIN) 500 Mg Tablet 1 TAB PO TID for uti for 5 Days, #15 TAB Prov: DIANA SANDY APRN 06/21/21 DIANA SANDY APRN Jun 21, 2021 10:34 GÓMEZ PINON DO Jun 23, 2021 06:19
[2021-06-21 11:19] LABS: BASO % 0 % (0-3); EOS # 0.1 x10^3/uL (0.0-0.7); EOS % 1 % (0-3); HEMATOCRIT 35.5 % (36.0-47.0); HEMOGLOBIN 11.9 g/dL (12.0-15.5); LYMPH # 1.3 x10^3/uL (1.0-4.8); LYMPH % 21 % (24-48); MEAN CORPUSCULAR HEMOGLOBIN 32 pg (25-35); MEAN CORPUSCULAR HGB CONC 34 g/dL (31-37); MEAN CORPUSCULAR VOLUME 96 fL (79-100); MONO # 0.6 x10^3/uL (0.0-1.1); MONO % 10 % (0-9); NEUT # 4.1 x10^3uL (1.8-7.7); NEUT % 68 % (31-73); PLATELET COUNT 296 x10^3/uL (140-400); RED BLOOD COUNT 3.72 x10^6/uL (3.50-5.40); RED CELL DISTRIBUTION WIDTH 13.7 % (11.5-14.5)
[2021-06-21 11:21] LABS: CALCIUM 8.4 mg/dL (8.5-10.1); CREATININE 0.8 mg/dL (0.6-1.0); GFR 91.4; POTASSIUM 3.5 mmol/L (3.5-5.1)
[2021-06-21 11:27] LABS: ALBUMIN 3.9 g/dL (3.4-5.0); ALBUMIN/GLOBULIN RATIO 1.2 (1.0-1.7); TOTAL BILIRUBIN 0.2 mg/dL (0.2-1.0); TOTAL PROTEIN 7.1 g/dL (6.4-8.2)
[2021-06-21 11:51] LABS: BACTERIA,URINE 0 /HPF (0-FEW); BILIRUBIN,URINE NEG (NEG); CLARITY,URINE HAZY; COLOR,URINE YELLOW; GLUCOSE,URINE NEG (NEG); NITRITE,URINE NEG (NEG); RBC,URINE 0 /HPF (0-2); SQUAMOUS EPITHELIAL CELL,UR MANY /LPF; UROBILINOGEN,URINE 0.2 mg/dL (0.2 mg/dL)
[2021-06-21] MEDS ORDERED: CEPH500T PO (13:00)
--- NOTE | 2021-06-21 13:04 | RAD ---
EXAM: Obstetrics sonogram. HISTORY: Vaginal bleeding. TECHNIQUE: Transabdominal and transvaginal sonographic imaging of the pelvis was performed. COMPARISON: None. FINDINGS: The uterus measures 8.4 x 5.7 x 4.7 cm. There is a single intrauterine gestational sac with pole and yolk sac. The crown-rump length is 4 mm, corresponding with a gestational age o f 6 weeks and 1 day and due date of 02/13/2022. The heart rate is 117 bpm. The gestational sac i s normal in configuration and location. The yolk sac is normal in size. No subchronic hematoma is see n. The left ovary is obscured due to bowel gas. The right ovary is unremarkable. There is a small laura unt of pelvic free fluid. There are prominent pelvic vessels. IMPRESSION: 1. Single intrauterine fetus with normal heart rate and gestational age based on a crown-rump l ength measurement of 6 weeks and 1 day. 2. Small amount of nonspecific pelvic free fluid and prominent pelvic vessels, the latter of which ma y be physiologic or due to a component of pelvic congestion. 3. No findings correlate with reported vaginal bleeding. Electronically signed by: America Benavidez MD (06/21/2021 1:02 PM) [id number]
[2021-06-21 13:05] VITALS: BP 107/64
[2021-06-21 13:26] VITALS: BP 112/61
== END 2021-06-21 13:26 | disposition home or self-care (01) ==
LOC: ER 10:03
DX: O20.8 Other hemorrhage in early pregnancy (principal); F12.10 Cannabis abuse, uncomplicated; Z3A.01 Less than 8 weeks gestation of pregnancy
CPT/HCPCS: 36415; 76801; 76817; 80053; 81001; 81025; 84702; 85025; 86850; 86900; 86901; 87086; 96374; 99285; J2790; 36430

== ENCOUNTER 2021-06-24 04:43 | Emergency (ER) | payer OTHER ==
[~2021-06-24] VITALS: Ht 167.6 cm; Wt 62.5 kg
[~2021-06-24 04:43] MED LIST changes: +CEPH500T PO
--- NOTE | 2021-06-24 05:06 | PHYS DOC ---
Past History Past Medical History: Anxiety, UTI Past Surgical History: Tonsillectomy Smoking: Non-smoker Alcohol Use: None Drug Use: Marijuana General Adult EDM: Chief Complaint: VAGINAL BLEEDING HPI: HPI: ". .. I have some more bleeding.. and cramping.. I think I may be completing my miscarriage...I was here the other day... " Patient is a 20 year old female who presents with above hx of vaginal bleeding and . Pt seen on 06/21/2021 for similar presentation. Her last menstruation 05/03. Patient's history of 2 para 1. She did deliver approximately 4 months ago. Patient did have a RhoGam shot. Patient denies any dysuria, had no discharge, or fears of STD. Denies any fever or chills. Denies any recent illnesses. States she has had a fairly healthy medical history. No recent travel. No specific ill contacts. No history of trauma. Patient has not follow-up for [facility] as yet. Patient's ultrasound on that date showed intra uterine . Patient beta- hCG on that date was 11, 086. On that date estimated age of 6 weeks 1 day. Patient was also started on Keflex 500x3 times a day for 5 days. For possible UTI.. Blood type at that time was B negative. Is on prenatals. Review of Systems: Review of Systems: Constitutional: Denies fever or chills Eyes: Denies change in visual acuity HENT: Denies nasal congestion or sore throat Respiratory: Denies cough or shortness of breath Cardiovascular: Denies chest pain or edema GI: Denies abdominal pain, nausea, vomiting, bloody stools or diarrhea. Complains of vaginal bleeding with history of positive work-up : Denies dysuria Musculoskeletal: Denies back pain or joint pain Integument: Denies rash Neurologic: Denies headache, focal weakness or sensory changes Endocrine: Denies polyuria or polydipsia Lymphatic: Denies swollen glands Psychiatric: Denies depression or anxiety Family History: Family History: Noncontributory Current Medications: Current Meds: See nursing for home meds. Allergies: Allergies: Allergies Coded Allergies Type Severity Reaction Last Updated Verified I S O L A T I O N *CONTACT* Allergy Unknown 06/21/21 Yes NKMA Allergy Unknown 06/24/21 Yes Physical Exam: PE: Constitutional: Well developed, well nourished, no acute distress, non-toxic appearance. [] HENT: Normocephalic, atraumatic, bilateral external ears normal, oropharynx moist, no oral exudates, nose normal. [] Eyes: PERRLA, EOMI, conjunctiva normal, no discharge. [] Neck: Normal range of motion, no tenderness, supple, no stridor. [] Cardiovascular:Heart rate regular rhythm, no murmur [] Lungs & Thorax: Bilateral breath sounds equal apex auscultation [] Abdomen: Bowel sounds normal, soft, no tenderness, no masses, no pulsatile masses. Vaginal bleeding which she reports is equal to her normal period. Skin: Warm, dry, no erythema, no rash. [] Back: No tenderness, no CVA tenderness. [] Extremities: No tenderness, no cyanosis, no clubbing, ROM intact, no edema. [] Neurologic: Alert and oriented X 3, normal motor function, normal sensory function, no focal deficits noted. [] Psychologic: Affect anxious, judgement normal, mood normal. [] Current Patient Data: Vital Signs: Vital Signs Date Time Temp Pulse Resp B/P (MAP) Pulse Ox O2 Delivery O2 Flow Rate FiO2 06/24/21 04:52 98.1 81 22 104/74 99 Room Air EKG: EKG: [] Radiology/Procedures: Radiology/Procedures: Prior ultrasound reviewed 06/21[] Heart Score: C/O Chest Pain: N/A Risk Factors: Risk Factors: DM, Current or recent (<one month) smoker, HTN, HLP, family history of CAD, obesity. Risk Scores: Score 0 - 3: 2.5% MACE over next 6 weeks - Discharge Home Score 4 - 6: 20.3% MACE over next 6 weeks - Admit for Clinical Observation Score 7 - 10: 72.7% MACE over next 6 weeks - Early Invasive Strategies Course & Med Decision Making: Course & Med Decision Making Pertinent Labs and Imaging studies reviewed. (See chart for details) Patient's beta-hCG is 7748. Patient continue monitoring bleeding. Patient informed of still significant risks of miscarriage. Patient keep follow-up will be [facility]. Patient keep follow-up with primary care. Patient continue vitamins. Patient return with any concerns. Patient have repeat beta-hCG in 3 days. May take Tylenol for discomfort. Impression: 1. Threatened /miscarriage 2. 2 term 1 3. Beta-hCG is7,748 4. Hemoglobin 11.6 [] Dragon Disclaimer: Dragon Disclaimer: This electronic medical record was generated, in whole or in part, using a voice recognition dictation system. Departure Departure: Referrals: MARC COX (PCP) Scripts Ondansetron (ONDANSETRON ODT) 4 Mg Tab.rapdis 1 TAB PO PRN Q6-8HRS PRN for VOMITING, #16 TAB Prov: GÓMEZ PINON DO 06/24/21 Oxycodone Hcl/Acetaminophen (PERCOCET 5-325 MG TABLET ) 1 Each Tablet 1 TAB PO PRN Q6HRS PRN for PAIN, #30 TAB Prov: GÓMEZ PINON DO 06/24/21 Dragon Disclaimer This chart was dictated in whole or in part using Voice Recognition software in a busy, high-work load, and often noisy Emergency Department environment. It may contain unintended and wholly unrecognized errors or omissions. POPEYE DYSON MD Jun 24, 2021 05:06
[2021-06-24] MEDS: IV RINGERS SOLUTION,LACTATED 1,000 ML IV SCH (05:15)
[2021-06-24] MEDS: oxyCODONE/APAP 5/325 1 TAB TABLET PO ONE (05:32)
[2021-06-24 06:02] LABS: BASO % 0 % (0-3); EOS # 0.1 x10^3/uL (0.0-0.7); EOS % 1 % (0-3); HEMOGLOBIN 11.6 g/dL (12.0-15.5); LYMPH # 2.4 x10^3/uL (1.0-4.8); LYMPH % 26 % (24-48); MEAN CORPUSCULAR HEMOGLOBIN 31 pg (25-35); MEAN CORPUSCULAR HGB CONC 33 g/dL (31-37); MEAN CORPUSCULAR VOLUME 95 fL (79-100); MONO # 0.7 x10^3/uL (0.0-1.1); MONO % 7 % (0-9); NEUT % 65 % (31-73); PLATELET COUNT 276 x10^3/uL (140-400); RED BLOOD COUNT 3.69 x10^6/uL (3.50-5.40); RED CELL DISTRIBUTION WIDTH 13.6 % (11.5-14.5); WHITE BLOOD COUNT 9.3 x10^3/uL (4.0-11.0)
[2021-06-24 06:10] LABS: ANION GAP 6 (6-14); BLOOD UREA NITROGEN 10 mg/dL (7-20); CALCIUM 8.8 mg/dL (8.5-10.1); CARBON DIOXIDE 29 mmol/L (21-32); CHLORIDE 104 mmol/L (98-107); CREATININE 0.7 mg/dL (0.6-1.0); GFR 106.7; GLUCOSE 95 mg/dL (70-99); POTASSIUM 3.4 mmol/L (3.5-5.1); SODIUM 139 mmol/L (136-145)
[2021-06-24 06:11] VITALS: BP 119/65
[2021-06-24 06:16] LABS: ALBUMIN 3.8 g/dL (3.4-5.0); ALK PHOS 66 U/L (46-116); ALT (SGPT) 17 U/L (14-59); AST (SGOT) 13 U/L (15-37); TOTAL BILIRUBIN 0.2 mg/dL (0.2-1.0)
[2021-06-24 06:17] LABS: DIRECT BILIRUBIN < 0.1 mg/dL (0.0-0.2)
[2021-06-24] MEDS ORDERED: ONDANSETRON PF 4 MG/2 ML VIAL. ONE (06:32)
[2021-06-24] MEDS: ONDANSETRON PF 4 MG/2 ML VIAL. IVP ONE (06:45)
[2021-06-24] MEDS ORDERED: OXYC1TAB15 PO ×2 (07:12→09:24)
[2021-06-24 07:16] LABS: BILIRUBIN,URINE NEG (NEG); CLARITY,URINE CLOUDY; COLOR,URINE YELLOW; GLUCOSE,URINE NEG (NEG); NITRITE,URINE POS (NEG); UROBILINOGEN,URINE 0.2 mg/dL (0.2 mg/dL)
[2021-06-24 07:17] LABS: BACTERIA,URINE MANY /HPF (0-FEW); RBC,URINE >40 /HPF (0-2); SQUAMOUS EPITHELIAL CELL,UR FEW /LPF
[2021-06-24] MEDS ORDERED: ONDA4TAB12 PO (09:27)
== END 2021-06-24 07:21 | disposition home or self-care (01) ==
LOC: ER 04:43
DX: O20.0 Threatened abortion (principal); Z3A.01 Less than 8 weeks gestation of pregnancy
CPT/HCPCS: 36415; 80048; 80076; 81001; 84702; 85025; 87077; 87086; 96361; 96374; 99283; J2405; J7120

== ENCOUNTER 2021-08-03 07:39 | Emergency (ER) | payer OTHER ==
[~2021-08-03] VITALS: Ht 170.2 cm; Wt 59.1 kg
[~2021-08-03 07:39] MED LIST changes: +OXYC1TAB15 PO
[2021-08-03 07:57] VITALS: BP 114/69
--- NOTE | 2021-08-03 08:06 | PHYS DOC ---
Past History Past Medical History: Anxiety, UTI Past Surgical History: Tonsillectomy Smoking: Non-smoker Alcohol Use: None Drug Use: Marijuana Adult General Chief Complaint Chief Complaint: NAUSEA/VOMITING/DIARRHEA HPI HPI Patient is a 21-year-old female presenting for URI symptoms. Onset was yesterday without any known inciting event, trauma, ingestion, recent sick contact or travel. Patient reports taking a hydrocodone several hours prior to arrival which reports helped with generalized muscle aches and pains. Nothing known makes worse. Reports symptoms have been constant since onset. Denies any reportable fevers greater than 100.4. Reports ongoing nasal congestion, rhinorrhea, dry nonproductive cough, nausea, abdominal pain and bilateral lower back pain. Has no known medical diagnoses, takes no medications on a daily basis. She is not vaccinated against COVID-19 Review of Systems Review of Systems Fourteen body systems of review of systems have been reviewed. See HPI for pertinent positives and negative responses, other shields all other systems are negative, non-pertinent or non-contributory Allergies Allergies Allergies Coded Allergies Type Severity Reaction Last Updated Verified I S O L A T I O N *CONTACT* Allergy Unknown 06/21/21 Yes NKMA Allergy Unknown 06/24/21 Yes Physical Exam Physical Exam General: Appears well, non toxic, and comfortable Skin: Warm, dry. Normal for ethnicity. HEENT: Atraumatic. PERRLA. Rhinorrhea and congestion. Nasal turbinates boggy b/l. Moist mucous membranes. Uvula midline. Maintaining secretions. No phonation changes. Neck: Trachea midline. Normal ROM. No stridor. Respiratory: Normal WOB. CTAB w/o w/r/r. No tachypnea. Cardiovascular: Regular rate and rhythm. Normal peripheral perfusion. Abdomen: Soft. Non tender. No distension. Back: Normal ROM. Musculoskeletal: No swelling or deformity. Neuro: Alert and oriented x 4. MAEE. Lymph: No cervical LAD. Psych: Normal affect and mood. Current Patient Data Vital Signs Vital Signs Date Time Temp Pulse Resp B/P (MAP) Pulse Ox O2 Delivery O2 Flow Rate FiO2 08/03/21 07:57 99.9 102 18 114/69 (84) 99 Room Air Vital Signs Date Time Temp Pulse Resp B/P (MAP) Pulse Ox O2 Delivery O2 Flow Rate FiO2 08/03/21 07:57 99.9 102 18 114/69 (84) 99 Room Air Lab Results Laboratory Tests Test 08/03/21 07:48 08/03/21 08:27 Urine Collection Type Unknown Urine Color Yellow Urine Clarity Cloudy Urine pH 6.0 Urine Specific [place] 1.020 Urine Protein 100 mg/dl Urine Glucose (UA) Neg mg/dL Urine Ketones (Stick) Trace mg/dL Urine Blood Large Urine Nitrite Pos Urine Bilirubin Neg Urine Urobilinogen Dipstick 0.2 mg/dL Urine Leukocyte Esterase Small Urine RBC 3-5 /HPF Urine WBC 20-40 /HPF Urine Squamous Epithelial Cells Many /LPF Urine Transitional Epithelial Cells Few /LPF Urine Bacteria Many /HPF Urine Mucus Slight /LPF Bedside Urine HCG, Qualitative hcg negative Current Medications Medications (Trade) Dose Ordered Sig/Sav Route PRN Reason Start Time Stop Time Status Last Admin Dose Admin Ondansetron HCl (Zofran Odt) 4 mg 1X ONCE PO 08/03/21 08:45 08/03/21 08:49 DC 08/03/21 09:06 Acetaminophen (Tylenol) 1,000 mg 1X ONCE PO 08/03/21 09:15 08/03/21 09:16 UNV 08/03/21 09:17 EKG EKG [] Radiology/Procedures Radiology/Procedures [] Heart Score C/O Chest Pain: No Risk Factors: Risk Factors: DM, Current or recent (<one month) smoker, HTN, HLP, family history of CAD, obesity. Risk Scores: Risk Factors: DM, Current or recent (<one month) smoker, HTN, HLP, family history of CAD, obesity. Course & Med Decision Making Course & Med Decision Making ABCs unremarkable HPI physical exam and comprehensive ER work-up nonconcerning for any emergent or surgical issues Patient found to have UTI, uncomplicated in nature. Joint decision made to treat with Keflex as this is been her preferred antibiotic in the past and well- tolerated Also discussed findings concerning for viral syndrome, patient tested for COVID- 19 with PCR swab pending. Appropriate supportive care and quarantine precautions discussed in an unvaccinated individual Mother at bedside upset that I was not prescribing narcotic pain medication for her discomfort. I told her this was not indicated. Patient also disclosed she has been taking other individuals hydrocodone that is not typically prescribed to her. I advised against this Strict return precautions discussed prior to ER departure. Patient left prior to receiving dose of antibiotic and receiving discharge information packet detailing return precautions etc. Dragon Disclaimer Dragon Disclaimer This electronic medical record was generated, in whole or in part, using a voice recognition dictation system. Departure Departure: Impression: Primary Impression: UTI (urinary tract infection) Additional Impression: Person under investigation for COVID-19 Disposition: HOME / SELF CARE / HOMELESS Condition: STABLE Referrals: MARC COX (PCP) Additional Instructions: You were seen for constellation of upper respiratory symptoms and possible inf ection with COVID-19. Your physical exam was reassuring. We tested you for COVID-19 but this test does not come back for 1 to 2 days. In the meantime you need to quarantine yourself at home away from all other individuals, especially those who are elderly or have any other chronic health issues or an immunocompromised status. You should return to the ED if you develop worsening cough, shortness of breath, chest pain, or any other new or concerning symptoms. Alternate Tylenol and ibuprofen as needed for body aches and pain, I recommend against taking narcotic pain medication that is not prescribed to you as this is illegal and not safe. If your test does come back positive you need to quarantine yourself for 10 days until symptom-free. You should make sure to drink plenty of fluids and get plenty of rest. In addition, you were found to have an urinary tract infection. Please continue to take the antibiotics as prescribed. You should return to the ED if you develop worsening pain, fever, flank pain, or any other new or concerning symptoms. Follow up with primary care for further management if ongoing symptoms. Scripts Cephalexin (KEFLEX) 500 Mg Capsule 2 CAP PO TID for uti for 5 Days, #30 CAP Prov: BENITA DESIR DO 08/03/21 Problem Qualifiers BENITA DESIR DO Aug 03, 2021 08:06
[2021-08-03] MEDS ORDERED: ONDANSETRON ODT 4 MG TAB.RAPDIS PO ONE (08:45)
[2021-08-03 09:02] LABS: BACTERIA,URINE MANY /HPF (0-FEW); BILIRUBIN,URINE NEG (NEG); CLARITY,URINE CLOUDY; COLOR,URINE YELLOW; GLUCOSE,URINE NEG (NEG); NITRITE,URINE POS (NEG); SQUAMOUS EPITHELIAL CELL,UR MANY /LPF; UROBILINOGEN,URINE 0.2 mg/dL (0.2 mg/dL); WBC,URINE 20-40 /HPF (0-4)
[2021-08-03] MEDS ORDERED: ACETAMINOPHEN 500 MG TABLET PO ONE (09:15)
[2021-08-03] MEDS ORDERED: CEPH500C PO (09:25)
[2021-08-03] MEDS ORDERED: CEPHALEXIN 250 MG CAPSULE PO ONE (09:30)
== END 2021-08-03 09:38 | disposition home or self-care (01) ==
LOC: ER 07:39
DX: N39.0 Urinary tract infection, site not specified (principal); M54.59 Other low back pain; F41.9 Anxiety disorder, unspecified; Z20.822 Contact with and (suspected) exposure to COVID-19; Z87.440 Personal history of urinary (tract) infections; Z88.8 Allergy status to other drugs, medicaments and biological substances
CPT/HCPCS: 81001; 81025; 87077; 87086; 87186; 99283; C9803; Q0162; U0003

== ENCOUNTER 2021-10-03 02:51 | Emergency (ER) | payer OTHER ==
[~2021-10-03] VITALS: Ht 165.1 cm; Wt 61.9 kg
[~2021-10-03 02:51] MED LIST changes: -TRIA15OI TP; +TRIA15OI32 TP
[2021-10-03] MEDS ORDERED: METOCLOPRAMIDE HCL 10 MG/2 ML VIAL. IVP ONE (03:15)
[2021-10-03] MEDS ORDERED: diphenhydrAMINE HCL 25 MG CAPSULE PO ONE ×2 (03:15→04:30)
[2021-10-03] MEDS ORDERED: diphenhydrAMINE 50 MG/ML VIAL ONE (03:16)
[2021-10-03 03:30] LABS: BASO # 0.1 x10^3/uL (0.0-0.2); BASO % 1 % (0-3); EOS # 0.1 x10^3/uL (0.0-0.7); EOS % 1 % (0-3); HEMATOCRIT 32.4 % (36.0-47.0); HEMOGLOBIN 10.9 g/dL (12.0-15.5); LYMPH # 2.7 x10^3/uL (1.0-4.8); LYMPH % 26 % (24-48); MEAN CORPUSCULAR HEMOGLOBIN 31 pg (25-35); MEAN CORPUSCULAR HGB CONC 34 g/dL (31-37); MEAN CORPUSCULAR VOLUME 93 fL (79-100); MONO # 0.6 x10^3/uL (0.0-1.1); MONO % 6 % (0-9); NEUT % 67 % (31-73); PLATELET COUNT 309 x10^3/uL (140-400); RED CELL DISTRIBUTION WIDTH 14.6 % (11.5-14.5); WHITE BLOOD COUNT 10.6 x10^3/uL (4.0-11.0)
[2021-10-03 03:38] LABS: BACTERIA,URINE FEW /HPF (0-FEW); BILIRUBIN,URINE NEG (NEG); CLARITY,URINE HAZY; COLOR,URINE YELLOW; GLUCOSE,URINE NEG (NEG); NITRITE,URINE NEG (NEG); SQUAMOUS EPITHELIAL CELL,UR MOD /LPF; UROBILINOGEN,URINE 0.2 mg/dL (0.2 mg/dL); WBC,URINE >40 /HPF (0-4)
--- NOTE | 2021-10-03 03:40 | PHYS DOC ---
Past History Past Medical History: Anxiety, UTI Past Surgical History: Tonsillectomy Smoking: Non-smoker Alcohol Use: None Drug Use: Marijuana Adult General Chief Complaint Chief Complaint: SHORTNESS OF BREATH HPI HPI Patient is a 21-year-old female who presents with a chief complaint of wanting to confirm a and concern for urinary tract infection. States that she has had some dysuria over the last couple of days and also had a home test over the weekend that was positive. States she has an appointment this week with her primary care physician but wanted to get it checked out. Denies any recent traumas, travels, illnesses, fevers, chest pain, shortness of breath, other abdominal plain, vomiting, hematuria, diarrhea or blood in the stool. Denies any vaginal pain, bleeding or discharge or history of STIs. Review of Systems Review of Systems Review of systems otherwise unremarkable except noted in HPI Allergies Allergies Allergies Coded Allergies Type Severity Reaction Last Updated Verified I S O L A T I O N *CONTACT* Allergy Unknown 06/21/21 Yes NKMA Allergy Unknown 06/24/21 Yes Physical Exam Physical Exam Constitutional: Well developed, well nourished, no acute distress, non-toxic appearance. [] HENT: Normocephalic, atraumatic, bilateral external ears normal, oropharynx moist, no oral exudates, nose normal. [] Eyes: conjunctiva normal, no discharge. [] Neck: Normal range of motion, no tenderness, supple, no stridor. [] Cardiovascular:Heart rate regular rhythm, no murmur [] Lungs & Thorax: Bilateral breath sounds clear to auscultation [] Abdomen: soft, no tenderness, no masses, no pulsatile masses. [] Skin: Warm, dry, no erythema, no rash. [] Back: No tenderness, no CVA tenderness. [] Extremities: No tenderness, no cyanosis, no clubbing, ROM intact, no edema. [] Neurologic: Alert and oriented X 3, normal motor function, normal sensory function, no focal deficits noted. [] Psychologic: Affect normal, judgement normal, mood normal. [] Current Patient Data Vital Signs Vital Signs Date Time Temp Pulse Resp B/P (MAP) Pulse Ox O2 Delivery O2 Flow Rate FiO2 10/03/21 02:56 98.1 109 22 130/78 (95) 100 Room Air EKG EKG [] Radiology/Procedures Radiology/Procedures [] Heart Score C/O Chest Pain: No Risk Factors: Risk Factors: DM, Current or recent (<one month) smoker, HTN, HLP, family history of CAD, obesity. Risk Scores: Risk Factors: DM, Current or recent (<one month) smoker, HTN, HLP, family history of CAD, obesity. Course & Med Decision Making Course & Med Decision Making Patient is a 21-year-old female who presents to confirm her test and have her dysuria evaluated Vital signs initially notable for tachycardia which resolved in the ED. Vital signs on repeat not concerning. Physical exam noted above. Patient given pain and nausea medicine. negative, beta-hCG 944. Other laboratory analysis not concerning. Transvaginal ultrasound obtained due to positive and concern for ectopic. Ultrasound with no intrauterine and no suspicious adnexal lesions. However given beta-hCG only 944 she may be too early to see. Urinalysis suggestive of urinary tract infection/pyelonephritis. Discussed all findings with patient including the possibility of other diagnoses like kidney stones or gallstones and PID. Patient states she would like to treatment for the pyelonephritis because she feels that that is what it is as she has had that before. States she is cannot follow-up with her primary care physician this morning to set up a follow-up visit. Advised on symptom management at home. Advised on antibiotic use. Advised to make sure to follow-up with primary care this morning and set up an immediate follow-up. Gave strict return precautions to the ED. [] Dragon Disclaimer Dragon Disclaimer This electronic medical record was generated, in whole or in part, using a voice recognition dictation system. Departure Departure: Impression: Primary Impression: Pyelonephritis Additional Impression: Disposition: HOME / SELF CARE / HOMELESS Condition: GOOD Referrals: MARC COX (PCP) Patient Instructions: ABCs of , Bacterial Vaginosis, Pyelonephritis, Adult Additional Instructions: Thank you for coming into the emergency department tonight and allowing us to take care of you. Please read the attached information carefully to go back over some of the things we discussed. Please take your antibiotics as prescribed and until gone. Please be sure to drink plenty of fluids and eat at least 3 nutritious meals a day and start your vitamins as well. You are also tested for gonorrhea and chlamydia in the urine and as we discussed, your results should be back in 24 to 48 hours and per your request we will treat you at that time if they are indeed positive. It is very important that you follow-up this morning with your primary care physician to update on ED visit and set up a post ER follow-up visit and bring your discharge paperwork with you showing your diagnosis. Please continue a Tylenol and Benadryl regimen as nee ded for pain but be careful as Benadryl can make you sleepy. Please use your nausea medicine as needed. Please come back to the ED with new or concerning symptoms as we discussed. You cannot drink alcohol while taking your antibiotics as the combination will cause significant upset stomach, nausea and vomiting. Scripts Metronidazole (METRONIDAZOLE) 500 Mg Tablet 1 TAB PO BID for BV for 7 Days, #13 TAB 0 Refills Prov: SHAQ MARIE MD 10/03/21 Cephalexin (KEFLEX) 500 Mg Capsule 1 CAP PO Q6HRS for pyelonephritis for 10 Days, #39 CAP Prov: SHAQ MARIE MD 10/03/21 Problem Qualifiers SHAQ MARIE MD Oct 03, 2021 03:40
[2021-10-03 03:43] LABS: ANION GAP 13 (6-14); BLOOD UREA NITROGEN 11 mg/dL (7-20); BUN/CREATININE RATIO 16 (6-20); CALCIUM 8.6 mg/dL (8.5-10.1); CARBON DIOXIDE 26 mmol/L (21-32); CHLORIDE 104 mmol/L (98-107); CREATININE 0.7 mg/dL (0.6-1.0); GFR 105.6; GLUCOSE 95 mg/dL (70-99); POTASSIUM 3.2 mmol/L (3.5-5.1); SODIUM 143 mmol/L (136-145)
[2021-10-03 03:49] LABS: ALBUMIN 3.4 g/dL (3.4-5.0); ALBUMIN/GLOBULIN RATIO 0.9 (1.0-1.7); ALK PHOS 64 U/L (46-116); ALT (SGPT) 14 U/L (14-59); AST (SGOT) 10 U/L (15-37); LIPASE 98 U/L (73-393); TOTAL PROTEIN 7.2 g/dL (6.4-8.2)
[2021-10-03 03:53] LABS: TOTAL BILIRUBIN < 0.1 mg/dL (0.2-1.0)
--- NOTE | 2021-10-03 04:30 | RAD ---
US TRANSVAGINAL ULTRASOUND HSG DATE: 10/03/2021 4:00 AM HISTORY: new , ab pain. LMP 08/26/2021. COMPARISON: None. TECHNIQUE: Transvaginal pelvic ultrasound was performed. FINDINGS: The uterus measures 9.1 x 4.8 x 4.3 cm. The myometrium demonstrates normal echogenicity without focal lesion. No intrauterine is identified. The right ovary measures 2.9 x 2.5 x 2.4 cm. The left ovary measures 2.5 x 1.8 x 1.6 cm. The bilatera l ovaries are physiologic in appearance. Normal vascularity in the bilateral ovaries by color Doppler examination. Mild pelvic free fluid. IMPRESSION: No intrauterine is identified. No suspicious adnexal lesions. Correlate with serum hCG. Electronically signed by: Walt Hills MD (10/03/2021 4:28 AM) REBEKA
[2021-10-03] MEDS ORDERED: CEPHALEXIN 250 MG CAPSULE PO ONE (05:00)
[2021-10-03] MEDS ORDERED: metroNIDAZOLE 500 MG TABLET PO ONE (05:00)
[2021-10-03] MEDS ORDERED: CEPH500C PO (05:02)
[2021-10-03] MEDS ORDERED: METR-34 PO (05:02)
[2021-10-03] MEDS ORDERED: PROMETHAZINE 25MG 4TABLET STARTPACK. PO ONE (05:15)
[2021-10-03] MEDS ORDERED: ACETAMINOPHEN/CODEINE 300/30MG 4TABLET STARTPACK. PO ONE (05:15)
[2021-10-03 05:20] VITALS: BP 106/60
== END 2021-10-03 05:21 | disposition home or self-care (01) ==
LOC: ER 02:51
DX: O23.01 Infections of kidney in pregnancy, first trimester (principal); O23.41 Unspecified infection of urinary tract in pregnancy, first trimester; N39.0 Urinary tract infection, site not specified; Z3A.00 Weeks of gestation of pregnancy not specified; Z88.8 Allergy status to other drugs, medicaments and biological substances
CPT/HCPCS: 36415; 76817; 80053; 81001; 81025; 83690; 84702; 85025; 87086; 87491; 87591; 96374; 96375; 96376; 99284; J2765; J3010; Q0111; Q0163; 96361

== ENCOUNTER 2021-10-27 04:11 | Emergency (ER) | payer OTHER ==
[~2021-10-27] VITALS: Ht 165.1 cm; Wt 56.6 kg
[~2021-10-27 04:11] MED LIST changes: +METR-34 PO
--- NOTE | 2021-10-27 04:20 | PHYS DOC ---
Past History Past Medical History: Anxiety, UTI (POPEYE DYSON MD) Past Surgical History: Tonsillectomy (POPEYE DYSON MD) Smoking: Non-smoker Alcohol Use: Rarely Drug Use: Marijuana (POPEYE DYSON MD) General Adult EDM: Chief Complaint: VOMITING IN HPI: HPI: ".. I am vomiting again.. and can't stop.. can't keep anything down.. I am really dry.. " " Took the Zofran.. but probably vomited it up... " Patient is a 21 year old female who presents with nausea and vomiting. Pt. complaints of generalize abdomen pain. Pt. estimate she is 6 to 8 weeks . Patient gravid 3 term 1 miscarriage 1. Patient miscarried in [facility]. Patient has been taking vitamins but is not sure how much she is kept down because of nausea vomiting. Has not gotten flu vaccination or Covid vaccination. No recent intake of bad food. No history of trauma. No history of recent travel. Was diagnosed with pyelonephritis and 10/03/2021 ED visit. Patient completed course of Flagyl and Keflex at that time. Patient blood type is B-negative. Has not received RhoGam with this . Pt. has not had US with this . Pt. in past has followed with Dr. Hussein. Primary is Maldonado. Pt. plans on following with [facility] in [place]. (POPEYE DYSON MD) Review of Systems: Review of Systems: Constitutional: Denies fever or chills Eyes: Denies change in visual acuity HENT: Denies nasal congestion or sore throat Respiratory: Denies cough or shortness of breath Cardiovascular: Denies chest pain or edema GI: Complains of generalized abdominal pain, nausea, vomiting,. Denies bloody stools or diarrhea. No vaginal bleeding at this time. : Denies dysuria Musculoskeletal: Denies back pain or joint pain Integument: Denies rash Neurologic: Denies headache, focal weakness or sensory changes Endocrine: Denies polyuria or polydipsia Lymphatic: Denies swollen glands Psychiatric: Denies depression or anxiety (POPEYE DYSON MD) Family History: Family History: Noncontributory. (POPEYE DYSON MD) Current Medications: Current Meds: See Nursing for home . (POPEYE DYSON MD) Allergies: Allergies: Allergies Coded Allergies Type Severity Reaction Last Updated Verified I S O L A T I O N *CONTACT* Allergy Unknown 06/21/21 Yes NKMA Allergy Unknown 06/24/21 Yes (POPEYE DYSON MD) Physical Exam: PE: Constitutional: in acute distress, non-toxic appearance. [] HENT: Normocephalic, atraumatic, bilateral external ears normal, oropharynx dry, no oral exudates, nose normal. [] Eyes: PERRLA, EOMI, conjunctiva normal, no discharge. [] Neck: Normal range of motion, no tenderness, supple, no stridor. [] Cardiovascular:Heart rate regular rhythm, no murmur [] Lungs & Thorax: Bilateral breath sounds equal at apex on auscultation [] Abdomen: Bowel sounds hyperactive, soft,generalize tenderness, no masses, no pul satile masses. [] Skin: Warm, dry, no erythema, no rash. [] Back: No tenderness, no CVA tenderness. [] Extremities: No tenderness, no cyanosis, no clubbing, ROM intact, no edema. [] Neurologic: Alert and oriented X 3, normal motor function, normal sensory function, no focal deficits noted. [] Psychologic: Affect anxious, judgement normal, mood depressed and tearful. (POPEYE DYSON MD) EKG: EKG: [] (POPEYE DYSON MD) Radiology/Procedures: Radiology/Procedures: [[place] [address] IMAGING REPORT Signed PATIENT: MICHELA LARAOUNT: [id number] : 2000 LOCATION: ER AGE: 21 SEX: F EXAM STATUS: REG ER ORD. PHYSICIAN: POPEYE DYSON MD REASON: OB, Flank pain PROCEDURE: OB <14 WKS W/TV EXAMINATION: US OB <14 WKS +TV INDICATION: 21 years, Female, flank pain. COMPARISON: 06/21/2020 TECHNIQUE: Transvaginal ultrasound of the pelvis was performed with grayscale, spectral, and color doppler imaging. FINDINGS: Menstrual Status: 08/26/2021 UTERUS: Unremarkable. GESTATIONAL SAC: Normal morphology. [place]-Rump Length: 1.57 corresponds to 8w0d. Heart Rate: 153 bpm. Expected date of delivery by last menstrual period:06/02/2022 Expected date of delivery by ultrasound 06/08/2022. RIGHT OVARY/ADNEXA: Measures: 3.7 x 3.1 x 2.0 cm Right Ovarian Morphology: Unremarkable Right Ovarian Color And Spectral Doppler Flow: Normal LEFT OVARY/ADNEXA: Measures: 2.8 x 2.6 x 1.8 cm Right Ovarian Morphology: Unremarkable Right Ovarian Color And Spectral Doppler Flow: Normal Fluid: None IMPRESSION Single live intrauterine with estimated gestational age based on crown-rump length is 8 weeks and 0 days Electronically signed by: Juanjo Garvin MD (10/27/2021 7:26 AM) [facility] DICTATED AND SIGNED BY: JUANOJ GARVIN MD DATE: 10/27/21 07 CC: BENITA DESIR DO; POPEYE DYSON MD; MARC COX PA ~[id number] ][place] [address] IMAGING REPORT Signed PATIENT: MICHELA LARAOUNT: [id number] : 2000 LOCATION: ER AGE: 21 SEX: F EXAM STATUS: REG ER ORD. PHYSICIAN: POPEYE DYSON MD REASON: OB, Flank pain PROCEDURE: RENAL COMPLETE BILATERAL COMPLETE RENAL ULTRASOUND Indication: Flank pain. Comparison: None. Procedure: Transabdominal ultrasound images are obtained of the kidneys and bladder. Findings: The kidneys demonstrate normal cortical echotexture. Corticomedullary differentiation is preserved. There is no hydronephrosis. The right kidney measures 10 cm. The left kidney measures 11.4 cm. The urinary bladder is normal. Right ureteral jet is seen. Left ureteral jet is not seen. The IVC is patent. IMPRESSION: No hydronephrosis or acute abnormality. Electronically signed by: Glen Tolentino MD (10/27/2021 7:08 AM) [id number] DICTATED AND SIGNED BY: GLEN TOLENTINO MD DATE: 10/27/21 0707 CC: BENITA DEISR DO; POPEYE DYSON MD; MARC COX PA ~[id number] 0 (POPEYE DYSON MD) Radiology/Procedures: COMPLETE RENAL ULTRASOUND Indication: Flank pain. Comparison: None. Procedure: Transabdominal ultrasound images are obtained of the kidneys and bladder. Findings: The kidneys demonstrate normal cortical echotexture. Corticomedullary differentiation is preserved. There is no hydronephrosis. The right kidney measures 10 cm. The left kidney measures 11.4 cm. The urinary bladder is normal. Right ureteral jet is seen. Left ureteral jet is not seen. The IVC is patent. IMPRESSION: No hydronephrosis or acute abnormality. Electronically signed by: Glen Tolentino MD (10/27/2021 7:08 AM) [id number] ///////////////////////////////// EXAMINATION: US OB <14 WKS +TV INDICATION: 21 years, Female, flank pain. COMPARISON: 06/21/2020 TECHNIQUE: Transvaginal ultrasound of the pelvis was performed with grayscale, spectral, and color doppler imaging. FINDINGS: Menstrual Status: 08/26/2021 UTERUS: Unremarkable. GESTATIONAL SAC: Normal morphology. [place]-Rump Length: 1.57 corresponds to 8w0d. Heart Rate: 153 bpm. Expected date of delivery by last menstrual period:06/02/2022 Expected date of delivery by ultrasound 06/08/2022. RIGHT OVARY/ADNEXA: Measures: 3.7 x 3.1 x 2.0 cm Right Ovarian Morphology: Unremarkable Right Ovarian Color And Spectral Doppler Flow: Normal LEFT OVARY/ADNEXA: Measures: 2.8 x 2.6 x 1.8 cm Right Ovarian Morphology: Unremarkable Right Ovarian Color And Spectral Doppler Flow: Normal Fluid: None IMPRESSION Single live intrauterine with estimated gestational age based on crown-rump length is 8 weeks and 0 days Electronically signed by: Juanjo Garvin MD (10/27/2021 7:26 AM) [facility] (BENITA DESIR DO) Heart Score: C/O Chest Pain: No Risk Factors: Risk Factors: DM, Current or recent (<one month) smoker, HTN, HLP, family history of CAD, obesity. Risk Scores: Score 0 - 3: 2.5% MACE over next 6 weeks - Discharge Home Score 4 - 6: 20.3% MACE over next 6 weeks - Admit for Clinical Observation Score 7 - 10: 72.7% MACE over next 6 weeks - Early Invasive Strategies (POPEYE DYSON MD) C/O Chest Pain: No (BENITA DESIR DO) Course & Med Decision Making: Course & Med Decision Making Pertinent Labs and Imaging studies reviewed. (See chart for details) Pt. endorsed to Dr. Desir at shift change. Pt. to continue Pre- vitamins. Follow with primary and [facility]. Plan where site of delivery and transportation. Impression: 1. Hyperemesis gravidarum 2. History of pyelonephritis 10/03/21 visit 3. Blood type B- negative 4. Dehydration 5. Gravid 3, term 1, miscarriage 1 6. Abdomen Pain 7. BHCG= 944 on 10/03, Tonight= 74,341 8. Urine Drug Screen + Marijuana 9.. Single IUP 8- wks 0 days by US Tonight- FHR 153 [] (POPEYE DYSON MD) Course & Med Decision Making I assumed care of patient after comprehensive signout from outgoing physician I reviewed entirety of ER work-up with patient his symptoms improved after ER intervention. I disclosed concern for UTI in , patient given ceftria xone with joint decision made to administer Keflex with close PCP and [facility] follow-up Strict return precautions discussed and understanding verbalized by patient prior to ER departure (BENITA DESIR DO) Kamon Disclaimer: Delaney Disclaimer: This electronic medical record was generated, in whole or in part, using a voice recognition dictation system. (POPEYE DSYON MD) Departure Departure: Impression: Primary Impression: UTI (urinary tract infection) in in first trimester Additional Impression: Nausea and vomiting during Disposition: 01 HOME / SELF CARE / HOMELESS Condition: STABLE Referrals: MARC COX (PCP) Patient Instructions: Nausea and Vomiting, - Urinary Tract Infection Additional Instructions: You were seen for a urinary tract infection. Please continue to take the antibiotics as prescribed. In addition, your comprehensive ER work-up was nonconcerning for any emergent or surgical issues. You had a transabdominal ultrasound performed that showed a single live intrauterine fetus at 8 weeks 0 days. You should contact your [facility] to review ER visit today and need for close outpatient follow-up. You should return to the ED if you develop worsening pain, fever, flank pain, or any other new or concerning symptoms. Follow up with primary care for further management if ongoing symptoms. Scripts Ondansetron Hcl (ZOFRAN) 4 Mg Tablet 1 TAB PO Q6HRS for nausea, #15 TAB Prov: BENITA DESIR DO 10/27/21 Cephalexin (CEPHALEXIN) 500 Mg Tablet 2 TAB PO BID for uti for 7 Days, #28 TAB Prov: BENITA DESIR DO 10/27/21 Dragon Disclaimer This chart was dictated in whole or in part using Voice Recognition software in a busy, high-work load, and often noisy Emergency Department environment. It may contain unintended and wholly unrecognized errors or omissions. (POPEYE DYSON MD) POPEYE DYSON MD Oct 27, 2021 04:19 BENITA DESIR DO Oct 27, 2021 06:56
[2021-10-27] MEDS ORDERED: FAMOTIDINE 20 MG/2 ML VIAL IVP ONE (04:30)
[2021-10-27] MEDS ORDERED: IV RINGERS SOLUTION,LACTATED 1,000 ML IV SCH (04:30)
[2021-10-27] MEDS ORDERED: ONDANSETRON PF 4 MG/2 ML VIAL. IVP ONE ×2 (04:30→06:30)
[2021-10-27] MEDS ORDERED: diphenhydrAMINE 50 MG/ML VIAL IVP ONE (04:45)
[2021-10-27] MEDS ORDERED: oxyCODONE/APAP 5/325 1 TAB TABLET PO ONE (05:15)
[2021-10-27 05:25] LABS: BASO # 0.1 x10^3/uL (0.0-0.2); BASO % 1 % (0-3); EOS # 0.1 x10^3/uL (0.0-0.7); EOS % 1 % (0-3); HEMATOCRIT 39.2 % (36.0-47.0); LYMPH # 2.1 x10^3/uL (1.0-4.8); LYMPH % 31 % (24-48); MEAN CORPUSCULAR HEMOGLOBIN 30 pg (25-35); MEAN CORPUSCULAR HGB CONC 33 g/dL (31-37); MEAN CORPUSCULAR VOLUME 92 fL (79-100); MONO # 0.5 x10^3/uL (0.0-1.1); MONO % 8 % (0-9); NEUT % 60 % (31-73); PLATELET COUNT 322 x10^3/uL (140-400); RED BLOOD COUNT 4.26 x10^6/uL (3.50-5.40); RED CELL DISTRIBUTION WIDTH 15.4 % (11.5-14.5); WHITE BLOOD COUNT 6.8 x10^3/uL (4.0-11.0)
[2021-10-27 05:31] LABS: BARBITURATES NEG (NEG); BENZODIAZEPINES NEG (NEG); CANNABINOIDS POS (NEG); COCAINE NEG (NEG); METHADONE NEG (NEG); OPIATES NEG (NEG); PHENCYCLIDINE NEG (NEG)
[2021-10-27 05:32] LABS: AMPHETAMINE/METHAMPHETAMINE NEG (NEG)
[2021-10-27 05:39] LABS: BILIRUBIN,URINE NEG (NEG); CLARITY,URINE CLOUDY; COLOR,URINE YELLOW; GLUCOSE,URINE NEG (NEG); NITRITE,URINE POS (NEG); UROBILINOGEN,URINE 0.2 mg/dL (0.2 mg/dL)
[2021-10-27 05:40] LABS: BACTERIA,URINE MANY /HPF (0-FEW); SQUAMOUS EPITHELIAL CELL,UR MANY /LPF
[2021-10-27 05:53] LABS: INFLUENZA A PATIENT NEGATIVE (NEGATIVE); INFLUENZA B PATIENT NEGATIVE (NEGATIVE)
[2021-10-27 05:54] LABS: CALCIUM 9.4 mg/dL (8.5-10.1); CREATININE 0.8 mg/dL (0.6-1.0); GFR 90.5; POTASSIUM 3.7 mmol/L (3.5-5.1)
[2021-10-27 05:59] LABS: ALBUMIN 4.7 g/dL (3.4-5.0); DIRECT BILIRUBIN 0.1 mg/dL (0.0-0.2); TOTAL BILIRUBIN 0.4 mg/dL (0.2-1.0)
[2021-10-27] MEDS ORDERED: cefTRIAXone SODIUM 1 GM VIAL ONE (06:05)
[2021-10-27] MEDS ORDERED: IV NORMAL SALINE 50ML 50 ML ONE (06:05)
--- NOTE | 2021-10-27 07:11 | RAD ---
COMPLETE RENAL ULTRASOUND Indication: Flank pain. Comparison: None. Procedure: Transabdominal ultrasound images are obtained of the kidneys and bladder. Findings: The kidneys demonstrate normal cortical echotexture. Corticomedullary differentiation is preserved. T here is no hydronephrosis. The right kidney measures 10 cm. The left kidney measures 11.4 cm. The urinary bladder is normal. Right ureteral jet is seen. Left ureteral jet is not seen. The IVC is patent. IMPRESSION: No hydronephrosis or acute abnormality. Electronically signed by: Glen Tolentino MD (10/27/2021 7:08 AM) [id number]
[2021-10-27] MEDS ORDERED: CEPH500T PO (07:16)
--- NOTE | 2021-10-27 07:28 | RAD ---
EXAMINATION: US OB <14 WKS +TV INDICATION: 21 years, Female, flank pain. COMPARISON: 06/21/2020 TECHNIQUE: Transvaginal ultrasound of the pelvis was performed with grayscale, spectral, and color do ppler imaging. FINDINGS: Menstrual Status: 08/26/2021 UTERUS: Unremarkable. GESTATIONAL SAC: Normal morphology. [place]-Rump Length: 1.57 corresponds to 8w0d. Heart Rate: 153 bpm. Expected date of delivery by last menstrual period:06/02/2022 Expected date of delivery by ultrasound 06/08/2022. RIGHT OVARY/ADNEXA: Measures: 3.7 x 3.1 x 2.0 cm Right Ovarian Morphology: Unremarkable Right Ovarian Color And Spectral Doppler Flow: Normal LEFT OVARY/ADNEXA: Measures: 2.8 x 2.6 x 1.8 cm Right Ovarian Morphology: Unremarkable Right Ovarian Color And Spectral Doppler Flow: Normal Fluid: None IMPRESSION Single live intrauterine with estimated gestational age based on crown-rump length is 8 wee ks and 0 days Electronically signed by: Gloria Garvin MD (10/27/2021 7:26 AM) [facility]
[2021-10-27] MEDS ORDERED: ACETAMINOPHEN 325 MG TABLET PO ONE (07:30)
[2021-10-27 07:56] VITALS: BP 110/71
[2021-10-27] MEDS ORDERED: ONDA4TAB7 PO (08:05)
== END 2021-10-27 08:11 | disposition home or self-care (01) ==
LOC: ER 04:11
DX: O21.0 Mild hyperemesis gravidarum (principal); O99.281 Endocrine, nutritional and metabolic diseases complicating pregnancy, first trimester; E86.0 Dehydration; O23.41 Unspecified infection of urinary tract in pregnancy, first trimester; N39.0 Urinary tract infection, site not specified; Z20.822 Contact with and (suspected) exposure to COVID-19; Z3A.08 8 weeks gestation of pregnancy; Z91.041 Radiographic dye allergy status
CPT/HCPCS: 36415; 76770; 76801; 76817; 80048; 80076; 80307; 81001; 82150; 83690; 84484; 84702; 85025; 86850; 86900; 86901; 87077; 87086; 87186; 87426; 87491; 87591; 87804; 96361; 96365; 96372; 96375; 96376; 99285; C9803; J0696; J1200; J2405; J2790; J3490; J7120; U0003

== ENCOUNTER → 2021-11-03 | Emergency (ER) | payer OTHER ==
[~2021-11-03] VITALS: Ht 165.1 cm; Wt 56.6 kg
[2021-11-03 14:26] VITALS: BP 98/58
[2021-11-03 15:20] LABS: BACTERIA,URINE FEW /HPF (0-FEW); BILIRUBIN,URINE NEG (NEG); CLARITY,URINE CLEAR; COLOR,URINE YELLOW; GLUCOSE,URINE NEG (NEG); NITRITE,URINE NEG (NEG); RBC,URINE OCC /HPF (0-2); SQUAMOUS EPITHELIAL CELL,UR MOD /LPF; UROBILINOGEN,URINE 0.2 mg/dL (0.2 mg/dL); WBC,URINE OCC /HPF (0-4)
== END | disposition left against medical advice (07) ==
LOC: ER 14:04
DX: O26.891 Other specified pregnancy related conditions, first trimester (principal); M79.10 Myalgia, unspecified site; R51.9 Headache, unspecified; Z3A.08 8 weeks gestation of pregnancy; Z53.21 Procedure and treatment not carried out due to patient leaving prior to being seen by health care provider
CPT/HCPCS: 81001

== ENCOUNTER 2022-01-25 06:49 | Emergency (ER) | payer OTHER ==
[~2022-01-25] VITALS: Ht 165.1 cm; Wt 56.6 kg
[2022-01-25 06:56] VITALS: BP 126/60
[2022-01-25] MEDS ORDERED: IV NORMAL SALINE 1,000ML 1,000 ML IV ONE (07:15)
--- NOTE | 2022-01-25 07:22 | PHYS DOC ---
Past History Past Medical History: Anxiety, UTI Additional Past Medical Histor: pyelonephritis Past Surgical History: Tonsillectomy Smoking: Non-smoker Alcohol Use: Rarely Drug Use: Marijuana General Adult EDM: Chief Complaint: VOMITING IN HPI: HPI: Patient is a at 5 months gestational age coming in for nausea and vomiting for 5 hours. Patient states the plosives nonbloody or bilious, has had some diarrhea in the past hour. Has lower abdominal cramping. Denies any fevers or cough. Is not vaccinated against influenza or Covid. No recent travel, known sick contacts, raw or undercooked food. Had similar problems with vomiting during previous Review of Systems: Review of Systems: All other systems within normal limits except for as noted in the HPI Current Medications: Current Meds: Current Medications Medications (Trade) Dose Ordered Sig/Sav Start Time Stop Time Status Last Admin Dose Admin Acetaminophen (Tylenol) 1,000 mg 1X ONCE 01/25/22 07:15 01/25/22 07:16 UNV Ondansetron HCl (Zofran) 4 mg 1X ONCE 01/25/22 07:15 01/25/22 07:16 UNV Sodium Chloride 1,000 ml @ 1,000 mls/hr 1X ONCE 01/25/22 07:15 01/25/22 08:14 UNV Allergies: Allergies: Allergies Coded Allergies Type Severity Reaction Last Updated Verified I S O L A T I O N *CONTACT* Allergy Unknown 10/27/21 Yes NKMA Allergy Unknown 10/27/21 Yes Physical Exam: PE: Constitutional: Well developed, well nourished, no acute distress, non-toxic appearance. [] HENT: Normocephalic, atraumatic, bilateral external ears normal, nose normal. [] Eyes: PERRLA, conjunctiva normal, no discharge. [] Neck: No rigidity, supple, no stridor. [] Cardiovascular: Regular rate and rhythm, brisk cap refill [] Lungs & Thorax: Non labored symmetric respirations, no tachypnea or respiratory distress [] Abdomen: Soft, nondistended Skin: Warm, dry, no erythema, no rash. [] Back: Unremarkable Extremities: No deformities, range of motion grossly intact, no lower extremity edema [] Neurologic: Alert and oriented X 3, no focal deficits noted. [] Psychologic: Affect normal, judgement normal, mood normal. [] Current Patient Data: Vital Signs: Vital Signs Date Time Temp Pulse Resp B/P (MAP) Pulse Ox O2 Delivery O2 Flow Rate FiO2 01/25/22 06:56 97.9 89 18 126/60 (82) 99 Room Air EKG: EKG: [] Radiology/Procedures: Radiology/Procedures: [] Heart Score: C/O Chest Pain: No Risk Factors: Risk Factors: DM, Current or recent (<one month) smoker, HTN, HLP, family history of CAD, obesity. Risk Scores: Score 0 - 3: 2.5% MACE over next 6 weeks - Discharge Home Score 4 - 6: 20.3% MACE over next 6 weeks - Admit for Clinical Observation Score 7 - 10: 72.7% MACE over next 6 weeks - Early Invasive Strategies Course & Med Decision Making: Course & Med Decision Making Pertinent Labs and Imaging studies reviewed. (See chart for details) Patient feeling better, discussed cessation of using cannabis during . [] Dragon Disclaimer: Dragon Disclaimer: This electronic medical record was generated, in whole or in part, using a voice recognition dictation system. Departure Departure: Impression: Primary Impression: Vomiting during Disposition: 01 HOME / SELF CARE / HOMELESS Condition: STABLE Referrals: MARC COX (PCP) Patient Instructions: Diet - Hyperemesis Gravidarum Scripts Ondansetron (ONDANSETRON ODT) 4 Mg Tab.rapdis 1 TAB PO PRN Q6-8HRS for nausea, #16 TAB Prov: RIO CHARLTON MD 01/25/22 RIO CHARLTON MD Jan 25, 2022 07:22
[2022-01-25] MEDS ORDERED: ACETAMINOPHEN 500 MG TABLET PO ONE (07:30)
[2022-01-25] MEDS ORDERED: ONDANSETRON PF 4 MG/2 ML VIAL. IVP ONE ×2 (07:30→10:30)
[2022-01-25 08:14] LABS: BASO % 0 % (0-3); EOS % 0 % (0-3); HEMATOCRIT 34.5 % (36.0-47.0); HEMOGLOBIN 11.7 g/dL (12.0-15.5); LYMPH # 0.5 x10^3/uL (1.0-4.8); LYMPH % 5 % (24-48); MEAN CORPUSCULAR HEMOGLOBIN 32 pg (25-35); MEAN CORPUSCULAR HGB CONC 34 g/dL (31-37); MEAN CORPUSCULAR VOLUME 96 fL (79-100); MONO # 0.3 x10^3/uL (0.0-1.1); MONO % 3 % (0-9); NEUT # 8.5 x10^3uL (1.8-7.7); NEUT % 91 % (31-73); PLATELET COUNT 244 x10^3/uL (140-400); RED BLOOD COUNT 3.61 x10^6/uL (3.50-5.40); RED CELL DISTRIBUTION WIDTH 14.1 % (11.5-14.5); WHITE BLOOD COUNT 9.4 x10^3/uL (4.0-11.0)
[2022-01-25 08:21] LABS: CREATININE 0.6 mg/dL (0.6-1.0); GFR 126.2; POTASSIUM 3.5 mmol/L (3.5-5.1)
[2022-01-25 08:26] LABS: ALBUMIN 3.2 g/dL (3.4-5.0); ALBUMIN/GLOBULIN RATIO 0.8 (1.0-1.7); TOTAL BILIRUBIN 0.5 mg/dL (0.2-1.0); TOTAL PROTEIN 7.3 g/dL (6.4-8.2)
[2022-01-25 08:31] LABS: INFLUENZA A PATIENT NEGATIVE (NEGATIVE); INFLUENZA B PATIENT NEGATIVE (NEGATIVE)
[2022-01-25 09:45] LABS: BARBITURATES NEG (NEG); BENZODIAZEPINES NEG (NEG); CANNABINOIDS POS (NEG); COCAINE NEG (NEG); METHADONE NEG (NEG); OPIATES NEG (NEG); PHENCYCLIDINE NEG (NEG)
[2022-01-25 09:46] LABS: AMPHETAMINE/METHAMPHETAMINE NEG (NEG)
[2022-01-25 09:59] LABS: BACTERIA,URINE 0 /HPF (0-FEW); CLARITY,URINE CLOUDY; COLOR,URINE YELLOW; GLUCOSE,URINE NEG (NEG); NITRITE,URINE NEG (NEG); SQUAMOUS EPITHELIAL CELL,UR MANY /LPF; UROBILINOGEN,URINE 0.2 mg/dL (0.2 mg/dL)
[2022-01-25] MEDS ORDERED: ONDA4TAB12 PO (10:32)
== END 2022-01-25 10:53 | disposition home or self-care (01) ==
LOC: ER 06:49
DX: O21.9 Vomiting of pregnancy, unspecified (principal); R19.7 Diarrhea, unspecified; R10.9 Unspecified abdominal pain; Z20.822 Contact with and (suspected) exposure to COVID-19; Z3A.00 Weeks of gestation of pregnancy not specified
CPT/HCPCS: 36415; 80053; 80307; 81001; 81025; 83690; 85025; 87077; 87086; 87186; 87428; 96361; 96374; 96376; 99284; J2405; J7030